=== PATIENT | female | born 1980 | race African-American/Black ===

== ENCOUNTER 2016-08-15 16:40 | Emergency (ER) | payer MEDICAID ==
[~2016-08-15 16:40] MED LIST: IBUP800T23 PO; LISI10TA3 PO
[2016-08-15 16:44] VITALS: BP 144/98; PULSE 105; RESP 20; TEMP 98.4; O2SAT 98
[2016-08-15] MEDS ORDERED: CYCL1TAB29 PO (16:57)
[2016-08-15] MEDS ORDERED: NAPR500T PO (16:57)
[2016-08-15] MEDS ORDERED: HYDR-3535 PO (16:57)
[2016-08-15] MEDS ORDERED: LIDO5DIS5 TOPICAL (17:13)
[2016-08-15] MEDS ORDERED: ORPHENADRINE INJ 60 MG/2 ML AMP IM ONE (17:15)
[2016-08-15] MEDS ORDERED: KETOROLAC TROMETHAMINE 60 MG/2 ML (IM) VIAL IM ONE (17:15)
--- NOTE | 2016-08-15 17:24 | PD ---
HPI Chief Complaint: Back/ Neck Pain or Injury Time Seen by Provider: 17:14 Travel History International Travel<30 days: No Contact w/Intl Traveler<30days: No Traveled to known affect area: No History of Present Illness HPI 36-year-old female presents to the emergency room for evaluation of chronic right-sided back pain. Patient states she has had chronic back pain for the past 2 years that flared 1-2 months ago. Denies any new trauma or injury. States she recently went to her pain management physician, Dr. Grover, who performed an MRI and gave her prescriptions for Lortab 10, Flexeril 10, and ibuprofen 800. Patient states she has been taking these medications several days without any relief in symptoms. Pain is so severe she had to be sent home early from work today. She cannot bend down without significant pain. States with every step she takes there is increasing pain in the right lower back. Pain is in the lumbar region and radiates to the right paraspinous musculature and down the right lower extremity. Patient has her MRI results with her: results dictated on July 30, 2016, state she has broad-based disc herniation incompletely effacing the ventral epidural fat of L5-S1. Patient states her pain management physician has not discussed surgery with her. She called an orthopedic surgeon and is waiting for him to call her back. Denies upper or lower extremity paresthesias, saddle anesthesia, or loss of bowel or bladder control. PFSH Past Medical History Blood Disorders: No Cancer: No Cardiovascular Problems: Yes Chemotherapy: No Diminished Hearing: No Endocrine: No Gastrointestinal Disorders: Yes GERD: Yes Genitourinary: No Headaches: Yes Hepatitis: Yes (HEP B) Hypertension: Yes Immune Disorder: No Musculoskeletal: No Neurologic: No Psychiatric: No Reproductive: Yes Respiratory: Yes (HX OF BRONCHITIS) Immunizations Current: Yes Radiation Therapy: No ?: Not LMP: 08/03/16 : 3 Para: 2 Miscarriage: 1 : 0 Ovarian Cysts: Yes Past Surgical History AICD: No Arteriovenous Shunt: No Insulin Pump: No Joint Replacement: No Pacemaker: No Social History Alcohol Use: Yes (OCC.) Tobacco Use: No (3-4 CIGS/DAY) Substance Use: No Allergies-Medications (Allergen,Severity, Reaction): Coded Allergies: No Known Allergies (Verified , 08/15/16) Reported Meds & Prescriptions Reported Meds & Active Scripts Active Lidoderm (Lidocaine) 5 % Adh..patch 1 Patch TOPICAL EVERY OTHER DAY PRN Lisinopril 10 Mg Tab 10 Mg PO DAILY Reported Naproxen 500 Mg Tab 500 Mg PO BID Flexeril (Cyclobenzaprine HCl) 10 Mg Tab 10 Mg PO TID Lortab (Hydrocodone-Acetaminophen) 10-325 Mg Tab 1 Tab PO Q4H PRN Review of Systems Except as stated in HPI: all other systems reviewed are Neg Physical Exam Narrative GENERAL: Well-nourished, well-developed female in no acute distress. Afebrile. Ambulatory. Moving on the bed with mild difficulty/pain. SKIN: Focused skin assessment warm/dry. HEAD: Normocephalic. EYES: No scleral icterus. No injection or drainage. NECK: Supple, trachea midline. No JVD or lymphadenopathy. CARDIOVASCULAR: Regular rate and rhythm without murmurs, gallops, or rubs. RESPIRATORY: Breath sounds equal bilaterally. No accessory muscle use. BACK: No CVA tenderness. No rash. No point tenderness on palpation of the spine. There is extreme tenderness to palpation of the right lumbar region. 2 + patellar and Achilles reflexes are equal bilaterally. Strength 5/5 and equal in lower extremities. Data Data Last Documented VS Vital Signs Date Time Temp Pulse Resp B/P Pulse Ox O2 Delivery O2 Flow Rate FiO2 08/15/16 16:44 98.4 105 20 144/98 98 Orders Ketorolac Inj (Toradol Inj) (08/15/16 17:15) Orphenadrine Inj (Norflex Inj) (08/15/16 17:15) MDM Medical Decision Making Medical Screen Exam Complete: Yes Emergency Medical Condition: Yes Medical Record Reviewed: Yes Differential Diagnosis Spasm, acute and chronic pain, fracture, contusion Narrative Course 1-year-old female presents to the emergency room for evaluation of acute on chronic low back pain. Patient has been having pain for 2 years but it exacerbated 2 months ago. She sees pain management but states the medications I prescribed are not helping. Physical exam is unremarkable. No focal neurological deficits. Ambulatory. No bony tenderness to palpation. She denies trauma or injury. Patient had an MRI last week that showed a bulging disc. She was informed that the emergency room cannot do nearly the extent of pain management as a management position and that she needs to follow up with her pain management doctor if her medications aren't working. She was given Toradol and Norflex in the emergency room and discharged with prescription for lidocaine patches. Told to return for neurological deficits. She understands and agrees to plan. Diagnosis Primary Impression: Chronic low back pain with right-sided sciatica Qualified Code: M54.41 - Chronic right-sided low back pain with right-sided sciatica Referrals: Pain Management Primary Care Physician Patient Instructions: Acute Low Back Pain (ED), General Instructions Additional Instructions: Apply patch as directed, as needed for pain. Apply ice to the affected area for 20 minutes at a time, as needed for pain and swelling. Follow-up with a primary care physician. Return to the emergency room for worsening symptoms. Med/Other Pt SpecificInfo: Prescription(s) given Scripts Lidocaine (Lidoderm)5 % Adh..patch1 Patch TOPICAL EVERY OTHER DAY PRN (PAIN SCALE 1 TO 10) #1 BOX Prov:Nohelia Martinez MD 08/15/16 Disposition: 01 DISCHARGE HOME Condition: Stable Marva Ortega Aug 15, 2016 17:24
== END 2016-08-15 17:33 | disposition home or self-care (01) ==
LOC: PHEFT 16:40
DX: M54.41 Lumbago with sciatica, right side (principal); G89.29 Other chronic pain; I10 Essential (primary) hypertension; Z72.0 Tobacco use; Z86.79 Personal history of other diseases of the circulatory system; Z87.19 Personal history of other diseases of the digestive system; Z87.42 Personal history of other diseases of the female genital tract; Z87.09 Personal history of other diseases of the respiratory system
CPT/HCPCS: 96372; 99284; J1885; J2360

== ENCOUNTER 2016-11-07 11:25 | Emergency (ER) | payer BC, MEDICAID ==
[~2016-11-07] VITALS: Ht 162.6 cm; Wt 75.9 kg
[~2016-11-07 11:25] MED LIST changes: +CYCL1TAB29 PO; +HYDR-3535 PO; -IBUP800T23 PO; +LIDO5DIS5 TOPICAL; +NAPR500T PO
[2016-11-07] MEDS ORDERED: SODIUM CHLOR 0.9% 1000 ML INJ 1,000 ML IV SCH (11:35)
--- NOTE | 2016-11-07 11:40 | PD ---
HPI Chief Complaint: ABD PAIN Time Seen by Provider: 11:35 Travel History International Travel<30 days: No Contact w/Intl Traveler<30days: No Traveled to known affect area: No History of Present Illness HPI OUT 1HR AGO, ACUTE ONSET OF RIGHT SIDED PAIN, SHARP, 9/10, NONRADIATING, DENIES N/V/D/FEVER/TOLLIVER/CP/....NO AGGRAVATING/ALLEVIATING FACTORS ALL: NKDA PMHX: HTN PSHX: DENIES PFSH Past Medical History Blood Disorders: No Cancer: No Cardiovascular Problems: Yes Chemotherapy: No Diminished Hearing: No Endocrine: No Gastrointestinal Disorders: Yes GERD: Yes Genitourinary: No Headaches: Yes Hepatitis: Yes (HEP B) Hypertension: Yes Immune Disorder: No Musculoskeletal: No Neurologic: No Psychiatric: No Reproductive: Yes Respiratory: Yes (HX OF BRONCHITIS) Immunizations Current: Yes Radiation Therapy: No : 3 Para: 2 Miscarriage: 1 : 0 Ovarian Cysts: Yes Past Surgical History AICD: No Arteriovenous Shunt: No Insulin Pump: No Joint Replacement: No Pacemaker: No Social History Alcohol Use: Yes (OCC.) Tobacco Use: No (3-4 CIGS/DAY) Substance Use: No Allergies-Medications (Allergen,Severity, Reaction): Coded Allergies: No Known Allergies (Verified , 08/19/16) Reported Meds & Prescriptions Reported Meds & Active Scripts Active Lidoderm (Lidocaine) 5 % Adh..patch 1 Patch TOPICAL EVERY OTHER DAY PRN Lisinopril 10 Mg Tab 10 Mg PO DAILY Reported Naproxen 500 Mg Tab 500 Mg PO BID Flexeril (Cyclobenzaprine HCl) 10 Mg Tab 10 Mg PO TID Lortab (Hydrocodone-Acetaminophen) 10-325 Mg Tab 1 Tab PO Q4H PRN Review of Systems Except as stated in HPI: all other systems reviewed are Neg Gastrointestinal: Positive: Abdominal Pain Physical Exam Narrative GENERAL: SKIN: Warm and dry. HEAD: Atraumatic. Normocephalic. EYES: Pupils equal and round. No scleral icterus. No injection or drainage. ENT: No nasal bleeding or discharge. Mucous membranes pink and moist. NECK: Trachea midline. No JVD. CARDIOVASCULAR: Regular rate and rhythm. RESPIRATORY: No accessory muscle use. Clear to auscultation. Breath sounds equal bilaterally. GASTROINTESTINAL: Abdomen soft, non-tender, nondistended. TT PERCUSSION OVER RUQ /RLQ REGIONS MUSCULOSKELETAL: Extremities without clubbing, cyanosis, or edema. No obvious deformities. NEUROLOGICAL: Awake and alert. No obvious cranial nerve deficits. Motor grossly within normal limits. Five out of 5 muscle strength in the arms and legs. Normal speech. PSYCHIATRIC: Appropriate mood and affect; insight and judgment normal. Data Data Last Documented VS Vital Signs Date Time Temp Pulse Resp B/P (MAP) Pulse Ox O2 Delivery O2 Flow Rate FiO2 11/07/16 11:57 97 Room Air 11/07/16 11:50 98.0 74 18 124/75 (91) Orders Orders Complete Blood Count With Diff (11/07/16 11:35) Comprehensive Metabolic Panel (11/07/16 11:35) Lipase (11/07/16 11:35) Prothrombin Time / Inr (Pt) (11/07/16 11:35) Act Partial Throm Time (Ptt) (11/07/16 11:35) Urinalysis - C+S If Indicated (11/07/16 11:35) Ct Abd/Pel W/O Iv Contrast (11/07/16 11:35) Iv Access Insert/Monitor (11/07/16 11:35) Ecg Monitoring (11/07/16 11:35) Oximetry (11/07/16 11:35) NPO (11/07/16 11:35) Hydromorphone Pf Inj (Dilaudid Pf Inj) (11/07/16 11:45) Ondansetron Inj (Zofran Inj) (11/07/16 11:45) Sodium Chlor 0.9% 1000 Ml Inj (Ns 1000 M (11/07/16 11:35) Ed Urine Pregnancytest Poc (11/07/16 11:35) Labs Laboratory Tests Test 11/07/16 11:50 11/07/16 12:20 White Blood Count 7.4 TH/MM3 Red Blood Count 5.28 MIL/MM3 Hemoglobin 14.9 GM/DL Hematocrit 45.2 % Mean Corpuscular Volume 85.7 FL Mean Corpuscular Hemoglobin 28.2 PG Mean Corpuscular Hemoglobin Concent 32.9 % Red Cell Distribution Width 13.4 % Platelet Count 179 TH/MM3 Mean Platelet Volume 9.7 FL Neutrophils (%) (Auto) 63.8 % Lymphocytes (%) (Auto) 29.4 % Monocytes (%) (Auto) 4.0 % Eosinophils (%) (Auto) 1.1 % Basophils (%) (Auto) 1.7 % Neutrophils # (Auto) 4.7 TH/MM3 Lymphocytes # (Auto) 2.2 TH/MM3 Monocytes # (Auto) 0.3 TH/MM3 Eosinophils # (Auto) 0.1 TH/MM3 Basophils # (Auto) 0.1 TH/MM3 CBC Comment DIFF FINAL Differential Comment Prothrombin Time 9.5 SEC Prothromb Time International Ratio 0.9 RATIO Activated Partial Thromboplast Time 27.3 SEC Blood Urea Nitrogen 16 MG/DL Creatinine 1.20 MG/DL Random Glucose 88 MG/DL Total Protein 7.2 GM/DL Albumin 3.6 GM/DL Calcium Level 9.1 MG/DL Alkaline Phosphatase 79 U/L Aspartate Amino Transf (AST/SGOT) 19 U/L Alanine Aminotransferase (ALT/SGPT) 29 U/L Total Bilirubin 0.5 MG/DL Sodium Level 139 MEQ/L Potassium Level 4.1 MEQ/L Chloride Level 106 MEQ/L Carbon Dioxide Level 25.9 MEQ/L Anion Gap 7 MEQ/L Estimat Glomerular Filtration Rate 61 ML/MIN Lipase 188 U/L Urine Collection Type VOIDED Urine Color STRAW Urine Turbidity CLEAR Urine pH 8.5 Urine Specific [place] 1.012 Urine Protein NEG mg/dL Urine Glucose (UA) NEG mg/dL Urine Ketones NEG mg/dL Urine Occult Blood MOD Urine Nitrite NEG Urine Bilirubin NEG Urine Leukocyte Esterase NEG Urine RBC 20-24 /hpf Urine WBC 0-2 /hpf Urine Squamous Epithelial Cells 0-5 /hpf Microscopic Urinalysis Comment CULT NOT INDICATED MDM Medical Decision Making Medical Screen Exam Complete: Yes Emergency Medical Condition: Yes Medical Record Reviewed: Yes Differential Diagnosis KIDNEY STONES V APPY V GB DZ V PANCREATITIS V COLITIS V DIVERTIC Narrative Course CBC, CMP AND UA WERE WNL, CT SHOWED OVARIAN CYSTS Diagnosis Primary Impression: OVARIAN CYST Patient Instructions: General Instructions, Ovarian Cyst (DC) Scripts Tramadol (Ultram) 50 Mg Tab 50 MG PO Q4H Y for PAIN, #20 TAB 0 Refills Prov: Jorge Durán MD 11/07/16 Ondansetron Odt (Zofran Odt) 4 Mg Tab 4 MG SL Q6HR Y for Nausea/Vomiting, #20 TAB 0 Refills Prov: Jorge Durán MD 11/07/16 Disposition: 01 DISCHARGE HOME Condition: Stable Jorge Durán MD Nov 07, 2016 11:40
[2016-11-07] MEDS ORDERED: HYDROmorphone HCL PF 2 MG/ML VIAL IVS ONE (11:45)
[2016-11-07] MEDS ORDERED: ONDANSETRON HCL 4 MG/2 ML VIAL IVP ONE (11:45)
[2016-11-07 11:50] VITALS: BP 124/75; PULSE 74; RESP 18; TEMP 98; O2SAT 98
[2016-11-07 11:57] VITALS: O2SAT 97
[2016-11-07 12:16] LABS: AUTOMATED NEUTROPHIL # 4.7 TH/MM3 (1.8-7.7); BASOPHIL # 0.1 TH/MM3 (0-0.2); BASOPHIL % 1.7 % (0.0-2.0); EOSINOPHIL # 0.1 TH/MM3 (0-0.4); EOSINOPHIL % 1.1 % (0.0-4.0); HEMATOCRIT 45.2 % (35.0-46.0); HEMO FLAGS DIFF FINAL; LYMPH % 29.4 % (9.0-44.0); LYMPHOCYTE # 2.2 TH/MM3 (1.0-4.8); MEAN CELL VOLUME 85.7 FL (80.0-100.0); MEAN CORPUSCULAR HEMOGLOBIN 28.2 PG (27.0-34.0); MEAN CORPUSCULAR HGB CONC 32.9 % (32.0-36.0); NEUT % 63.8 % (16.0-70.0); PLATELET COUNT 179 TH/MM3 (150-450); RED BLOOD COUNT 5.28 MIL/MM3 (4.00-5.30); RED CELL DISTRIBUTION WIDTH 13.4 % (11.6-17.2); WHITE BLOOD COUNT 7.4 TH/MM3 (4.0-11.0)
[2016-11-07 12:28] LABS: CHLORIDE 106 MEQ/L (98-107); POTASSIUM 4.1 MEQ/L (3.5-5.1); SODIUM (NA) 139 MEQ/L (136-145)
[2016-11-07 12:31] LABS: APTT (PATIENT) 27.3 SEC (24.3-30.1); INTERNATIONAL NORMALIZED RATIO 0.9 RATIO; PROTHROMBIN TIME - PATIENT 9.5 SEC (9.8-11.6)
[2016-11-07 12:33] LABS: ANION GAP 7 MEQ/L (5-15); BICARBONATE 25.9 MEQ/L (21.0-32.0); BLOOD UREA NITROGEN 16 MG/DL (7-18)
[2016-11-07 12:33] LABS: BLOOD, URINE MOD (NEG); GLUCOSE,URINE NEG (NEG); KETONE, URINE NEG (NEG); NITRITE,URINE NEG (NEG); PH, URINE 8.5 (5.0-8.5)
[2016-11-07 12:36] LABS: ALT (GPT) 29 U/L (10-53); AST (GOT) 19 U/L (15-37); GLOMERULAR FILTRATION RATE 61 ML/MIN (>89)
[2016-11-07 12:38] LABS: TOTAL BILIRUBIN ADULT 0.5 MG/DL (0.2-1.0)
[2016-11-07 12:39] LABS: ALKALINE PHOSPHATASE 79 U/L (45-117)
[2016-11-07 13:01] LABS: METHOD OF COLLECTION VOIDED; URINE COLOR STRAW (YELLW/STRAW)
[2016-11-07 13:02] LABS: COMMENT (UR) CULT NOT INDICATED; CULTURE IF INDICATED CULT NOT INDICATED; SQUAMOUS EPITHELIAL CELL URINE 0-5 /hpf (0-5); WBC, URINE 0-2 /hpf (0-5)
--- NOTE | 2016-11-07 13:06 | RADRPT ---
EXAM DATE/TIME: 11/07/2016 12:37 [facility] COMPARISON: No previous studies available for comparison. INDICATIONS : Right flank pain. Evaluate for renal stone. ORAL CONTRAST: No oral contrast ingested. RADIATION DOSE: 16.50 CTDIvol (mGy) MEDICAL HISTORY : Gastroesophageal reflux disease. Ovarian cyst. SURGICAL HISTORY : None. ENCOUNTER: Initial ACUITY: 1 day PAIN SCALE: 4/10 LOCATION: Right flank TECHNIQUE: Volumetric scanning of the abdomen and pelvis was performed. Using automated exposure control and ad justment of the mA and/or kV according to patient size, radiation dose was kept as low as reasonably achievable to obtain optimal diagnostic quality images. DICOM format image data is available electro nically for review and comparison. FINDINGS: LOWER LUNGS: Mild atelectatic changes in the right base. Otherwise clear. LIVER: Homogeneous density without lesion. There is no dilation of the biliary tree. No calcified gallston es. SPLEEN: Normal size without lesion. PANCREAS: Within normal limits. KIDNEYS: Normal in size and shape. There is no mass, stone, or hydronephrosis. The ureters are difficult to f ollow into the deep pelvis but I do not see stone disease. ADRENAL GLANDS: Within normal limits. VASCULAR: There is no aortic aneurysm. BOWEL/MESENTERY: The stomach, small bowel, and colon demonstrate no acute abnormality. There is no free intraperitone al air or fluid. The appendix is clearly identified, partially filled with residual contrast and radi ographically normal. ABDOMINAL WALL: Within normal limits. RETROPERITONEUM: There is no lymphadenopathy. BLADDER: No wall thickening or mass. REPRODUCTIVE: There appear to be follicular type cysts in both ovaries the largest on the right measuring 2 cm in d iameter. INGUINAL: There is no lymphadenopathy or hernia. MUSCULOSKELETAL: Within normal limits for patient age. CONCLUSION: 1. Mild atelectatic changes in the right base. 2. Bilateral ovarian cysts, largest on the right measuring 2 cm in diameter. 3. Otherwise, no acute intraperitoneal or pelvic process to explain current clinical symptoms. No obv ious right-sided stones or hydronephrosis. The appendix is normal. Cullen Rubi MD on November 07, 2016 at 12:54 Board Certified Radiologist. This report was verified electronically.
[2016-11-07 13:10] VITALS: BP 116/75; PULSE 68; RESP 16; O2SAT 97
[2016-11-07] MEDS ORDERED: ULTR50TA5 PO (13:43)
[2016-11-07] MEDS ORDERED: ZOFR4TAB3 SL (13:43)
[2016-11-07 13:58] VITALS: BP 116/63
== END 2016-11-07 14:09 | disposition home or self-care (01) ==
LOC: PHED 11:25
DX: N83.201 Unspecified ovarian cyst, right side (principal); N83.202 Unspecified ovarian cyst, left side; I10 Essential (primary) hypertension; K21.9 Gastro-esophageal reflux disease without esophagitis; F17.210 Nicotine dependence, cigarettes, uncomplicated
CPT/HCPCS: 74176; 80053; 81001; 83690; 84703; 85025; 85610; 85730; 96361; 96374; 96375; 99285; J1170; J2405; J7030

== ENCOUNTER 2017-03-31 23:57 | Emergency (ER) | payer BC ==
[~2017-03-31] VITALS: Ht 154.9 cm; Wt 73.0 kg
[~2017-03-31 23:57] MED LIST changes: -CYCL1TAB29 PO; -HYDR-3535 PO; -LIDO5DIS5 TOPICAL; -NAPR500T PO; +TRAM50 PO; +ZOFR4TAB3 SL
[2017-04-01 00:11] VITALS: BP 119/80; PULSE 75; RESP 20; TEMP 98.2; O2SAT 97
[2017-04-01] MEDS ORDERED: DOXY10TA PO (02:23)
--- NOTE | 2017-04-01 02:24 | PD ---
HPI Chief Complaint: GI Complaint Time Seen by Provider: 02:19 Travel History International Travel<30 days: No Contact w/Intl Traveler<30days: No Traveled to known affect area: No History of Present Illness HPI The patient is a 36-year-old female who is 5 weeks and started nausea with vomiting today. She states she cannot get anything down. This happened with her previous pregnancies and she tells me she "lived on Phenergan". She denies vomiting any blood, any fever or diarrhea. She does not have any significant abdominal pain. PFSH Past Medical History Blood Disorders: No Cancer: No Cardiovascular Problems: Yes Chemotherapy: No Diminished Hearing: No Endocrine: No Gastrointestinal Disorders: Yes GERD: Yes Genitourinary: No Headaches: Yes Hepatitis: Yes (HEP B) Hypertension: Yes Immune Disorder: No Implanted Vascular Access Dvce: No Musculoskeletal: No Neurologic: No Psychiatric: No Reproductive: Yes Respiratory: Yes (HX OF BRONCHITIS) Immunizations Current: Yes Radiation Therapy: No Influenza Vaccination: No ?: : 3 Para: 2 Miscarriage: 1 : 0 Ovarian Cysts: Yes Past Surgical History AICD: No Arteriovenous Shunt: No Insulin Pump: No Joint Replacement: No Pacemaker: No Social History Alcohol Use: Yes (OCC.) Tobacco Use: No (3-4 CIGS/DAY) Substance Use: Yes (Marijuana "on the weekends") Allergies-Medications (Allergen,Severity, Reaction): Coded Allergies: No Known Allergies (Verified , 08/19/16) Reported Meds & Prescriptions Reported Meds & Active Scripts Active Ultram (Tramadol HCl) 50 Mg Tab 50 Mg PO Q4H PRN Zofran Odt (Ondansetron Odt) 4 Mg Tab 4 Mg SL Q6HR PRN Lisinopril 10 Mg Tab 10 Mg PO DAILY Review of Systems Except as stated in HPI: all other systems reviewed are Neg Physical Exam Narrative GENERAL: Well-nourished, well-developed patient. There are no ketones on the breath. The patient appears mildly dehydrated. Her vital signs are normal. SKIN: Focused skin assessment warm/dry. HEAD: Normocephalic. EYES: No scleral icterus. No injection or drainage. NECK: Supple, trachea midline. No JVD or lymphadenopathy. CARDIOVASCULAR: Regular rate and rhythm without murmurs, gallops, or rubs. RESPIRATORY: Breath sounds equal bilaterally. No accessory muscle use. GASTROINTESTINAL: Abdomen soft, non-tender, nondistended. No guarding or rebound is present. MUSCULOSKELETAL: No cyanosis, or edema. BACK: Nontender without obvious deformity. No CVA tenderness. Data Data Last Documented VS Vital Signs Date Time Temp Pulse Resp B/P (MAP) Pulse Ox O2 Delivery O2 Flow Rate FiO2 04/01/17 00:43 16 04/01/17 00:11 98.2 75 119/80 (93) 97 MDM Medical Decision Making Medical Screen Exam Complete: Yes Emergency Medical Condition: Yes Medical Record Reviewed: Yes Differential Diagnosis Hyperemesis gravidarum, gastritis, gastroenteritis, small bowel obstruction- unlikely Narrative Course The patient has hyperemesis gravidarum. She will be given a prescription for Diclegis. Diagnosis Primary Impression: Hyperemesis gravidarum Med/Other Pt SpecificInfo: Prescription(s) given Scripts Doxylamine-Pyridoxine (Diclegis) 10-10 Mg Tab 2 TAB PO HS, #45 Prov: Jesus Chapman MD 04/01/17 Disposition: DISCHARGE HOME Condition: Stable Jesus Chapman MD Apr 01, 2017 02:24
[2017-04-01 02:30] VITALS: BP 138/62
[2017-04-01] MEDS ORDERED: PROMETHAZINE INJ 25 MG/ML VIAL IM ONE (02:30)
== END 2017-04-01 02:35 | disposition home or self-care (01) ==
LOC: PHED 23:57
DX: O21.0 Mild hyperemesis gravidarum (principal); O99.611 Diseases of the digestive system complicating pregnancy, first trimester; K21.9 Gastro-esophageal reflux disease without esophagitis; O16.1 Unspecified maternal hypertension, first trimester; O98.411 Viral hepatitis complicating pregnancy, first trimester; B19.10 Unspecified viral hepatitis B without hepatic coma; O99.331 Smoking (tobacco) complicating pregnancy, first trimester; F17.210 Nicotine dependence, cigarettes, uncomplicated; Z3A.01 Less than 8 weeks gestation of pregnancy
CPT/HCPCS: 96372; 99283; J2550

== ENCOUNTER 2017-04-03 23:06 | Emergency (ER) | payer BC ==
[~2017-04-03] VITALS: Ht 154.9 cm; Wt 72.0 kg
[~2017-04-03 23:06] MED LIST changes: +DOXY10TA PO
[2017-04-03 23:09] VITALS: BP 122/79; PULSE 85; RESP 20; TEMP 98.1; O2SAT 97
[2017-04-03] MEDS ORDERED: CYCL10TA PO (23:23)
[2017-04-03] MEDS ORDERED: HYDR-3583 PO (23:23)
[2017-04-03] MEDS ORDERED: PROM25TA10 PO (23:58)
--- NOTE | 2017-04-03 23:59 | PD ---
HPI Chief Complaint: GI Complaint Time Seen by Provider: 23:46 Travel History International Travel<30 days: No Contact w/Intl Traveler<30days: No Traveled to known affect area: No History of Present Illness HPI The patient is a 36-year-old female that complains of nausea. She was seen here for her hyperemesis gravidarum 3 days ago. She was prescribed Diclegis by myself but she could not afford the Diclegis. She states she has taken Phenergan in the past when she was . She states her insurance company wants $100 for the prescription of Diclegis. PFSH Past Medical History Blood Disorders: No Cancer: No Cardiovascular Problems: Yes Chemotherapy: No Diminished Hearing: No Endocrine: No Gastrointestinal Disorders: Yes GERD: Yes Genitourinary: No Headaches: Yes Hepatitis: Yes (HEP B) Hypertension: Yes Immune Disorder: No Implanted Vascular Access Dvce: No Musculoskeletal: No Neurologic: No Psychiatric: No Reproductive: Yes Respiratory: Yes (HX OF BRONCHITIS) Immunizations Current: Yes Radiation Therapy: No Influenza Vaccination: No ?: LMP: 02/20/17 : 4 Para: 2 Miscarriage: 1 : 0 Ovarian Cysts: Yes Past Surgical History AICD: No Arteriovenous Shunt: No Insulin Pump: No Joint Replacement: No Pacemaker: No Social History Alcohol Use: No (QUIT 03/30/17) Tobacco Use: Yes (QUIT 03/30/17) Substance Use: Yes (Marijuana "on the weekends") Allergies-Medications (Allergen,Severity, Reaction): Coded Allergies: No Known Allergies (Verified , 08/19/16) Reported Meds & Prescriptions Reported Meds & Active Scripts Active Phenergan (Promethazine HCl) 25 Mg Tablet 25 Mg PO Q6H PRN Diclegis (Doxylamine-Pyridoxine) 10-10 Mg Tab 2 Tab PO HS Lisinopril 10 Mg Tab 10 Mg PO DAILY Reported Flexeril (Cyclobenzaprine HCl) 10 Mg Tab 10 Mg PO TID PRN Hydrocodone-Acetaminophen 10-325 mg Tab 1 Tab PO Q4H PRN Review of Systems Except as stated in HPI: all other systems reviewed are Neg Physical Exam Narrative GENERAL: The patient is alert, oriented 3, slightly dehydrated-appearing and slight apparent distress with her nausea. Her vital signs are normal. SKIN: Focused skin assessment warm/dry. HEAD: Atraumatic. Normocephalic. EYES: Pupils equal and round. No scleral icterus. No injection or drainage. ENT: No nasal bleeding or discharge. Mucous membranes pink and moist. NECK: Trachea midline. No JVD. CARDIOVASCULAR: Regular rate and rhythm. No murmur appreciated. RESPIRATORY: No accessory muscle use. Clear to auscultation. Breath sounds equal bilaterally. GASTROINTESTINAL: Abdomen soft, non-tender, nondistended. Hepatic and splenic margins not palpable. No guarding or rebound is present. MUSCULOSKELETAL: No obvious deformities. No clubbing. No cyanosis. No edema. NEUROLOGICAL: Awake and alert. No obvious cranial nerve deficits. Motor grossly within normal limits. Normal speech. PSYCHIATRIC: Appropriate mood and affect; insight and judgment normal. Data Data Last Documented VS Vital Signs Date Time Temp Pulse Resp B/P (MAP) Pulse Ox O2 Delivery O2 Flow Rate FiO2 04/03/17 23:25 18 04/03/17 23:09 98.1 85 122/79 (93) 97 Orders Orders Sodium Chlor 0.9% 1000 Ml Inj (Ns 1000 M (04/04/17 00:00) Ondansetron Inj (Zofran Inj) (04/04/17 00:00) MDM Medical Decision Making Medical Screen Exam Complete: Yes Emergency Medical Condition: Yes Medical Record Reviewed: Yes Differential Diagnosis Hyperemesis gravidarum, dehydration, noncompliance to medications, Narrative Course The patient has hyperemesis gravidarum. She has noncompliance to medications because she cannot afford the Diclegis. She will be given a prescription for Phenergan. She is to follow-up with an air pollution engineer. She has been given 2 L of saline here as well as 4 mg of Zofran IV. It is now 011 2 in the morning and the patient has no nausea at this time. She wants to go home. She is given a prescription for Phenergan. She plans on buying the Diclegis but if it does not work, the Phenergan will be back up. She needs to get an air pollution engineer as soon as possible. Additional Instructions: As we discussed, get an air pollution engineer as soon as possible. The Phenergan is one tablet every 6 hours as needed for nausea. You may need to go to one tablet every 4 hours or 2 tablets every 6 hours if the nausea is severe. Med/Other Pt SpecificInfo: Prescription(s) given Scripts Promethazine (Phenergan) 25 Mg Tablet 25 MG PO Q6H Y for NAUSEA OR VOMITING, #30 TAB 0 Refills Prov: Jesus Chapman MD 04/03/17 Disposition: 01 DISCHARGE HOME Condition: Stable Jesus Chapman MD Apr 03, 2017 23:59
[2017-04-04] MEDS ORDERED: ONDANSETRON HCL 4 MG/2 ML VIAL IV ONE
[2017-04-04] MEDS: SODIUM CHLOR 0.9% 1000 ML INJ 1,000 ML IV SCH ×2 (00:16→00:52)
[2017-04-04 00:30] VITALS: BP 145/87; PULSE 83; RESP 16; O2SAT 99
[2017-04-04 01:35] VITALS: BP 108/67; PULSE 85; RESP 16; O2SAT 100
== END 2017-04-04 01:46 | disposition home or self-care (01) ==
LOC: PHED 23:06
DX: O21.0 Mild hyperemesis gravidarum (principal); O16.9 Unspecified maternal hypertension, unspecified trimester; Z3A.00 Weeks of gestation of pregnancy not specified; Z87.891 Personal history of nicotine dependence
CPT/HCPCS: 96361; 96374; 99284; J2405; J7030

== ENCOUNTER 2017-04-17 19:49 | Emergency (ER) | payer BC ==
[~2017-04-17] VITALS: Ht 154.9 cm; Wt 71.3 kg
[~2017-04-17 19:49] MED LIST changes: +CYCL10TA PO; +HYDR-3583 PO; +PROM25TA10 PO; -TRAM50 PO; -ZOFR4TAB3 SL
[2017-04-17 20:11] VITALS: BP 143/78; PULSE 76; RESP 16; TEMP 98.7; O2SAT 99
--- NOTE | 2017-04-17 20:53 | PD ---
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 Patient is 4 para 2. Patient states that she is about 8 week . Patient awaiting appointment with OB physician. Patient states that she is having intermittent right pelvic pain, sharp pain since this morning. Patient states that she noticed small amount of vaginal spotting today also. Patient states that she has small amount of vaginal discharge recently. Patient denies any fever chills. Patient denies any dysuria or frequency. Patient denies any back pain. Patient's blood type A+. PFSH Past Medical History Blood Disorders: No Cancer: No Cardiovascular Problems: Yes Chemotherapy: No Diminished Hearing: No Endocrine: No Gastrointestinal Disorders: Yes GERD: Yes Genitourinary: No Headaches: Yes Hepatitis: Yes (HEP B) Hypertension: Yes Immune Disorder: No Implanted Vascular Access Dvce: No Musculoskeletal: No Neurologic: No Psychiatric: No Reproductive: Yes Respiratory: Yes (HX OF BRONCHITIS) Immunizations Current: Yes Radiation Therapy: No ?: LMP: 02/20/17 : 4 Para: 2 Miscarriage: 1 : 0 Ovarian Cysts: Yes Past Surgical History AICD: No Arteriovenous Shunt: No Insulin Pump: No Joint Replacement: No Pacemaker: No Social History Alcohol Use: No (QUIT 03/30/17) Tobacco Use: Yes (QUIT 03/30/17) Substance Use: Yes (Marijuana "on the weekends") Allergies-Medications (Allergen,Severity, Reaction): Coded Allergies: No Known Allergies (Verified Adverse Reaction, Unknown, 04/17/17) Reported Meds & Prescriptions Reported Meds & Active Scripts Active Phenergan (Promethazine HCl) 25 Mg Tablet 25 Mg PO Q6H PRN Diclegis (Doxylamine-Pyridoxine) 10-10 Mg Tab 2 Tab PO HS Lisinopril 10 Mg Tab 10 Mg PO DAILY Reported Flexeril (Cyclobenzaprine HCl) 10 Mg Tab 10 Mg PO TID PRN Hydrocodone-Acetaminophen 10-325 mg Tab 1 Tab PO Q4H PRN Review of Systems General / Constitutional: No: Fever Eyes: No: Visual changes HENT: No: Headaches Cardiovascular: No: Chest Pain or Discomfort Respiratory: No: Shortness of Breath Gastrointestinal: No: Abdominal Pain Genitourinary: Positive: Pelvic Pain, Vaginal Bleeding, No: Dysuria Musculoskeletal: No: Pain Skin: No Rash Neurologic: No: Weakness Psychiatric: No: Depression Endocrine: No: Polydipsia Hematologic/Lymphatic: No: Easy Bruising Physical Exam Narrative GENERAL: Well-nourished, well-developed patient. SKIN: Focused skin assessment warm/dry. HEAD: Normocephalic. EYES: No scleral icterus. No injection or drainage. NECK: Supple, trachea midline. No JVD or lymphadenopathy. CARDIOVASCULAR: Regular rate and rhythm without murmurs, gallops, or rubs. RESPIRATORY: Breath sounds equal bilaterally. No accessory muscle use. GASTROINTESTINAL: Abdomen soft, non-tender, nondistended. MUSCULOSKELETAL: No cyanosis, or edema. BACK: Nontender without obvious deformity. No CVA tenderness. 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 No blood noticeable in the vaginal vault or cervical office. Uterus is enlarged with mild tenderness in palpation. No adnexal mass or tenderness. Data Data Last Documented VS Vital Signs Date Time Temp Pulse Resp B/P (MAP) Pulse Ox O2 Delivery O2 Flow Rate FiO2 04/17/17 20:11 98.7 76 16 143/78 (99) 99 Orders Orders Beta Hcg (Quant/Titer) (04/17/17 20:43) Gc And Chlamydia Pcr (04/17/17 20:43) Us Pelvis (Ques Pr/Ect)W Trans (04/17/17 ) Wet Prep Profile (04/17/17 20:43) Urinalysis - C+S If Indicated (04/17/17 20:43) Labs Laboratory Tests Test 04/17/17 20:55 04/17/17 21:00 Urine Color YELLOW Urine Turbidity CLEAR Urine pH 6.0 Urine Specific [place] 1.010 Urine Protein NEG mg/dL Urine Glucose (UA) NEG mg/dL Urine Ketones NEG mg/dL Urine Occult Blood NEG Urine Nitrite NEG Urine Bilirubin NEG Urine Urobilinogen 0.2 MG/DL Urine Leukocyte Esterase NEG Urine RBC 0-3 /hpf Urine WBC 0-2 /hpf Urine Squamous Epithelial Cells 6-8 /hpf Microscopic Urinalysis Comment CULT NOT INDICATED Human Chorionic Gonadotropin, Quant [id number] MIU/ML Clue Cells (Wet Prep) NONE SEEN Vaginal Trichomonas (Wet Prep) NONE SEEN Vaginal Yeast (Wet Prep) NONE SEEN MDM Medical Decision Making Medical Screen Exam Complete: Yes Emergency Medical Condition: Yes Interpretation(s) 22:15 PM. UA is negative. Beta-hCG [id number]. Wet prep negative. GC chlamydia PCR pending. Pelvic ultrasound shows IUP with heart tone present. Differential Diagnosis Differential diagnosis including pelvic pain during , cervicitis, threatened AB, completed AB, completed AB, ectopic . Narrative Course 36-year-old female, 8 weeks , with right-sided pelvic pain and vaginal spotting. Diagnosis Primary Impression: Pelvic pain during Patient Instructions: General Instructions Additional Instructions: vitamins as directed. Follow-up with personal physician and OB physician. Return increasing pain, vaginal bleeding. Med/Other Pt SpecificInfo: No Meds Exist/No RX given Disposition: 01 DISCHARGE HOME Condition: Stable Antony Renee MD Apr 17, 2017 20:53
[2017-04-17 21:05] LABS: BILIRUBIN, URINE NEG (NEG); BLOOD, URINE NEG (NEG); GLUCOSE,URINE NEG (NEG); KETONE, URINE NEG (NEG); NITRITE,URINE NEG (NEG); URINE COLOR YELLOW (YELLW/STRAW); URINE LEUKOCYTE ESTERASE NEG (NEG)
[2017-04-17 21:12] LABS: RBC, URINE 0-3 /hpf (0-3); WBC, URINE 0-2 /hpf (0-5)
[2017-04-17 22:26] VITALS: BP 138/71; TEMP 98.5
--- NOTE | 2017-04-17 22:48 | RADRPT ---
EXAM DATE/TIME: 04/17/2017 21:58 [facility] COMPARISON: No previous studies available for comparison. INDICATIONS : Vaginal spotting. LAB(S): Beta-hC,940 MEDICAL HISTORY : . Hypertension. Gastroesophageal reflux disease. Ovarian cysts. SURGICAL HISTORY : None. ENCOUNTER: Initial ACUITY: 1 day PAIN SCORE: 2/10 LOCATION: Bilateral pelvis MEASUREMENTS: UTERUS: 9.9 x 6.4 x 6.2 cm ENDOMETRIAL STRIPE: >20 mm RIGHT OVARY: 2.9 x 1.5 x 4.1 cm LEFT OVARY: 4.2 x 1.9 x 3.0 cm FREE FLUID: Yes bilateral adnexas. CROWN RUMP LENGTH: 1.7 cm = 8 WKS 1 DAYS FHR: 167 BPM FINDINGS: UTERUS: There is a gestational sac, yield sac and pole within the uterine cavity. Gestational sac is ap proximately 17.1 mm which corresponds to a gestational age of 8 weeks one day. No subchorionic hemorr blanca or other acute complication seen. heart tones are demonstrated. RIGHT OVARY: Ovary contains no mass or significant cystic lesion. LEFT OVARY: There is an approximately 2.3 x 1.7 x 2.1 cm left ovarian cyst. No associated significant hyperemia i s seen. MISCELLANEOUS: Trace free fluid in both adnexa. CONCLUSION: 1. Single, viable intrauterine as above. 2. Cyst of the left ovary, probably a corpus luteal cyst. No features typical of ectopic. Cecilio Obrien MD on April 17, 2017 at 22:43 Board Certified Radiologist. This report was verified electronically.
== END 2017-04-17 22:33 | disposition home or self-care (01) ==
LOC: PHED 19:49
DX: O26.891 Other specified pregnancy related conditions, first trimester (principal); R10.2 Pelvic and perineal pain; B19.10 Unspecified viral hepatitis B without hepatic coma; I10 Essential (primary) hypertension; Z3A.08 8 weeks gestation of pregnancy
CPT/HCPCS: 76700; 76817; 81001; 84702; 87210; 87491; 87591; 99285

== ENCOUNTER → 2017-06-21 | Outpatient (CLI) | DX: O28.0 Abnormal hematological finding on antenatal screening of mother (principal); O35.1XX0 Maternal care for (suspected) chromosomal abnormality in fetus, not applicable or unspecified; B19.10 Unspecified viral hepatitis B without hepatic coma; D57.3 Sickle-cell trait; O09.522 Supervision of elderly multigravida, second trimester; O98.419 Viral hepatitis complicating pregnancy, unspecified trimester ==

== ENCOUNTER → 2017-07-05 | Outpatient (CLI) | payer BC | LOC: HPND 12:21 | PROVIDERS: ATTEND Obstetrics & Gynecology | DX: O09.522 Supervision of elderly multigravida, second trimester (principal); O28.0 Abnormal hematological finding on antenatal screening of mother; O09.212 Supervision of pregnancy with history of pre-term labor, second trimester; O99.012 Anemia complicating pregnancy, second trimester | CPT/HCPCS: 76815; 76817 ==

== ENCOUNTER → 2017-07-19 | Outpatient (CLI) | payer BC | LOC: HPND 08:47 | PROVIDERS: ATTEND Obstetrics & Gynecology | DX: O09.522 Supervision of elderly multigravida, second trimester (principal); O28.0 Abnormal hematological finding on antenatal screening of mother; O99.012 Anemia complicating pregnancy, second trimester; O09.212 Supervision of pregnancy with history of pre-term labor, second trimester; O09.292 Supervision of pregnancy with other poor reproductive or obstetric history, second trimester | CPT/HCPCS: 76816; 76817 ==

== ENCOUNTER 2017-08-01 00:40 | Emergency (ER) | payer BC ==
[~2017-08-01] VITALS: Ht 154.9 cm; Wt 80.4 kg
[2017-08-01 00:49] VITALS: BP 128/74; PULSE 92; RESP 16; TEMP 99.1; O2SAT 99
--- NOTE | 2017-08-01 01:23 | PD ---
HPI Chief Complaint: Pelvic discomfort Time Seen by Provider: 00:53 Travel History International Travel<30 days: No Contact w/Intl Traveler<30days: No Traveled to known affect area: No History of Present Illness HPI The patient is a 37-year-old female, G4, P2, A1 who gets the Liz shots to prevent early labor. She complains of cramping every 15 minutes. She denies any vaginal bleeding. She states she has a short cervix and she has a tear in the cervix. She is followed by Dr. Paz. [facility] Past Medical History Blood Disorders: No Cancer: No Cardiovascular Problems: Yes Chemotherapy: No Diminished Hearing: No Endocrine: No Gastrointestinal Disorders: Yes GERD: Yes Genitourinary: No Headaches: Yes Hepatitis: Yes (HEP B) Hypertension: Yes Immune Disorder: No Implanted Vascular Access Dvce: No Musculoskeletal: No Neurologic: No Psychiatric: No Reproductive: Yes Respiratory: Yes (HX OF BRONCHITIS) Immunizations Current: Yes Radiation Therapy: No : 4 Para: 2 Miscarriage: 1 : 0 Ovarian Cysts: Yes Past Surgical History AICD: No Arteriovenous Shunt: No Insulin Pump: No Joint Replacement: No Pacemaker: No Social History Alcohol Use: No (QUIT 03/30/17) Tobacco Use: No (QUIT 03/30/17) Substance Use: No Allergies-Medications (Allergen,Severity, Reaction): Coded Allergies: No Known Allergies (Verified Adverse Reaction, Unknown, 04/17/17) Reported Meds & Prescriptions Reported Meds & Active Scripts Active Reported Phenergan (Promethazine HCl) 25 Mg Tablet 25 Mg PO Q6H PRN Flintstones Complete (Iron/Minerals/Multivitamins) 60 Mg Tab 1 Tab CHEW DAILY Liz 250 mg/ml Vial (Hydroxyprogesterone Caproat/Pf) 250 Mg/Ml (1 Ml) Vial IM WEEKLY Review of Systems Except as stated in HPI: all other systems reviewed are Neg Physical Exam Narrative GENERAL: The patient is obese, alert, oriented 3 in slight apparent distress with her pelvic discomfort. The vital signs are normal except for a heart rate of 92. SKIN: Focused skin assessment warm/dry. HEAD: Atraumatic. Normocephalic. EYES: Pupils equal and round. No scleral icterus. No injection or drainage. ENT: No nasal bleeding or discharge. Mucous membranes pink and moist. NECK: Trachea midline. No JVD. CARDIOVASCULAR: Regular rate and rhythm. No murmur appreciated. RESPIRATORY: No accessory muscle use. Clear to auscultation. Breath sounds equal bilaterally. GASTROINTESTINAL: Abdomen soft, non-tender, nondistended. Hepatic and splenic margins not palpable. MUSCULOSKELETAL: No obvious deformities. No clubbing. No cyanosis. No edema. NEUROLOGICAL: Awake and alert. No obvious cranial nerve deficits. Motor grossly within normal limits. Normal speech. PSYCHIATRIC: Appropriate mood and affect; insight and judgment normal. GENITOURINARY: Normal external genitalia without lesions or erythema. Vaginal vault with white, [id number] drainage. Cervical os was closed without drainage. Slight cervical motion tenderness. Uterus nontender and 23 weeks enlarged. Bilateral adnexa Slightly tender without masses. Data Data Last Documented VS Vital Signs Date Time Temp Pulse Resp B/P (MAP) Pulse Ox O2 Delivery O2 Flow Rate FiO2 08/01/17 01:18 20 08/01/17 00:49 99.1 92 128/74 (92) 99 Orders Orders Electrocardiogram (08/01/17 00:54) Basic Metabolic Panel (Bmp) (08/01/17 01:50) Urinalysis - C+S If Indicated (08/01/17 01:50) Complete Blood Count With Diff (08/01/17 01:50) Labs Laboratory Tests Test 08/01/17 01:55 White Blood Count 13.8 TH/MM3 Red Blood Count 3.84 MIL/MM3 Hemoglobin 11.5 GM/DL Hematocrit 34.7 % Mean Corpuscular Volume 90.4 FL Mean Corpuscular Hemoglobin 30.0 PG Mean Corpuscular Hemoglobin Concent 33.2 % Red Cell Distribution Width 13.1 % Platelet Count 180 TH/MM3 Mean Platelet Volume 9.0 FL Neutrophils (%) (Auto) 71.8 % Lymphocytes (%) (Auto) 16.5 % Monocytes (%) (Auto) 6.4 % Eosinophils (%) (Auto) 0.7 % Basophils (%) (Auto) 4.6 % Neutrophils # (Auto) 9.9 TH/MM3 Lymphocytes # (Auto) 2.3 TH/MM3 Monocytes # (Auto) 0.9 TH/MM3 Eosinophils # (Auto) 0.1 TH/MM3 Basophils # (Auto) 0.6 TH/MM3 CBC Comment DIFF FINAL Differential Comment Urine Color YELLOW Urine Turbidity CLEAR Urine pH 6.5 Urine Specific [place] LESS/EQUAL 1.005 Urine Protein NEG mg/dL Urine Glucose (UA) NEG mg/dL Urine Ketones NEG mg/dL Urine Occult Blood NEG Urine Nitrite NEG Urine Bilirubin NEG Urine Urobilinogen 1.0 MG/DL Urine Leukocyte Esterase NEG Urine RBC 0-3 /hpf Urine WBC 3-5 /hpf Urine Squamous Epithelial Cells 6-8 /hpf Urine Bacteria OCC /hpf Microscopic Urinalysis Comment CULT NOT INDICATED Blood Urea Nitrogen 9 MG/DL Creatinine 0.85 MG/DL Random Glucose 97 MG/DL Calcium Level 8.8 MG/DL Sodium Level 136 MEQ/L Potassium Level 4.3 MEQ/L Chloride Level 105 MEQ/L Carbon Dioxide Level 21.0 MEQ/L Anion Gap 10 MEQ/L Estimat Glomerular Filtration Rate 90 ML/MIN [facility] Medical Decision Making Medical Screen Exam Complete: Yes Emergency Medical Condition: Yes Medical Record Reviewed: Yes Interpretation(s) EKG shows sinus rhythm with a rate of [address] elevation or depression. The CBC shows a white count of 13,800 with a hemoglobin 11.5 and hematocrit of 34.7 and 72% neutrophils but is otherwise unremarkable. The basic metabolic profile is normal. The urine is normal and cultures not indicated. The specific gravity is low at 1.005. Differential Diagnosis , Urinary tract infection active labor, false labor, John Velasco contractions Narrative Course It is now 0226 and the patient's contractions have completely resolved. She is told to call Dr. aPz in the morning about what happened tonight. The patient wants to go home, she states she feels fine now. Diagnosis Primary Impression: Pelvic pain/contractions resolved Additional Instructions: As we discussed, follow-up with Dr. Paz as soon as possible. Tell him that she had some pelvic discomfort that resolved tonight. Med/Other Pt SpecificInfo: No Change to Meds Disposition: 01 DISCHARGE HOME Condition: Stable Jesus Chapman MD Aug 01, 2017 01:23
[2017-08-01] MEDS ORDERED: FLINT2 CHEW (01:28)
[2017-08-01] MEDS ORDERED: HYDR2INJ IM (01:28)
[2017-08-01] MEDS ORDERED: PROM25TA10 PO (01:32)
[2017-08-01 02:01] LABS: AUTOMATED NEUTROPHIL # 9.9 TH/MM3 (1.8-7.7); BASOPHIL # 0.6 TH/MM3 (0-0.2); BASOPHIL % 4.6 % (0.0-2.0); BILIRUBIN, URINE NEG (NEG); BLOOD, URINE NEG (NEG); EOSINOPHIL # 0.1 TH/MM3 (0-0.4); EOSINOPHIL % 0.7 % (0.0-4.0); GLUCOSE,URINE NEG (NEG); HEMATOCRIT 34.7 % (35.0-46.0); HEMOGLOBIN 11.5 GM/DL (11.6-15.3); KETONE, URINE NEG (NEG); LYMPH % 16.5 % (9.0-44.0); LYMPHOCYTE # 2.3 TH/MM3 (1.0-4.8); MEAN CELL VOLUME 90.4 FL (80.0-100.0); MEAN CORPUSCULAR HGB CONC 33.2 % (32.0-36.0); MONO % 6.4 % (0.0-8.0); MONOCYTE # 0.9 TH/MM3 (0-0.9); NEUT % 71.8 % (16.0-70.0); NITRITE,URINE NEG (NEG); PH, URINE 6.5 (5.0-8.5); PLATELET COUNT 180 TH/MM3 (150-450); RED BLOOD COUNT 3.84 MIL/MM3 (4.00-5.30); RED CELL DISTRIBUTION WIDTH 13.1 % (11.6-17.2); URINE COLOR YELLOW (YELLW/STRAW); URINE LEUKOCYTE ESTERASE NEG (NEG); WHITE BLOOD COUNT 13.8 TH/MM3 (4.0-11.0)
[2017-08-01 02:06] LABS: BACTERIA, URINE OCC /hpf; RBC, URINE 0-3 /hpf (0-3)
[2017-08-01 02:11] LABS: CALCIUM 8.8 MG/DL (8.5-10.1)
[2017-08-01 02:15] LABS: CREATININE 0.85 MG/DL (0.50-1.00)
[2017-08-01 02:30] VITALS: BP 118/69
--- NOTE | 2017-08-01 07:39 | EKG ---
Date Performed: 08/01/2017 Time Performed: 01:23:14 PTAGE: 37 years EKG: Baseline artifact present Sinus rhythm NONSPECIFIC T-WAVE ABNORMALITY BORDERLINE ECG NO PREVIOUS TRACING DOCTOR: Maxi Tena Interpretating Date/Time 08/01/2017 07:38:54
== END 2017-08-01 02:43 | disposition home or self-care (01) ==
LOC: PHED 00:40
DX: O26.899 Other specified pregnancy related conditions, unspecified trimester (principal); R10.2 Pelvic and perineal pain; R94.31 Abnormal electrocardiogram [ECG] [EKG]; Z3A.00 Weeks of gestation of pregnancy not specified
CPT/HCPCS: 80048; 81001; 85025; 93005

== ENCOUNTER → 2017-08-03 | Outpatient (CLI) | payer BC ==
[~2017-08-03] MED LIST changes: +FLINT2 CHEW; +HYDR2INJ IM
== END ==
LOC: HPND 09:00
PROVIDERS: ATTEND Obstetrics & Gynecology
DX: O09.522 Supervision of elderly multigravida, second trimester (principal); O09.292 Supervision of pregnancy with other poor reproductive or obstetric history, second trimester; O28.0 Abnormal hematological finding on antenatal screening of mother
CPT/HCPCS: 76815; 76817

== ENCOUNTER 2017-09-03 16:16 | Inpatient (IN) ==
[2017-09-03] MEDS ORDERED: Docusate Sodium 100 MG Capsule PO PRN (16:55)
[2017-09-03] MEDS ORDERED: Mag Sulf/Water 4 gm/100 ml 100 ML IV.SIG ONE (16:55)
[2017-09-03] MEDS: Mag Sulf/Water 40 gm/1000 ml 40 GM/1,000 ML BAG IV.CONT SCH (17:30)
[2017-09-03] MEDS: Betamethasone Sod Phos/Acetate Inj 30 MG/5 ML Vial IM SCH (17:32)
[2017-09-03 17:33] LABS: Baso % (Auto) 0.3 % (0.0-2.0); Eos # (Auto) 0.1 th/mm3 (0.0-0.4); Eos % (Auto) 0.6 % (0.0-4.0); Hematocrit 35.3 % (35.0-46.0); Hemoglobin 12.1 gm/dL (11.6-15.3); Lymph # (Auto) 2.2 th/mm3 (1.0-4.8); Lymph % (Auto) 16.7 % (9.0-44.0); Mean Corpuscular HGB Conc 34.4 % (32.0-36.0); Mean Corpuscular Hemoglobin 30.1 pg (27.0-34.0); Mean Corpuscular Volume 87.6 fL (80.0-100.0); Mean Platelet Volume 8.6 fL (7.0-11.0); Neut # (Auto) 9.6 th/mm3 (1.8-7.7); Neut % (Auto) 74.4 % (16.0-70.0); Platelet Count 178 th/mm3 (150-450); Red Blood Count 4.03 mil/mm3 (4.00-5.30); Red Cell Distribution Width 13.7 % (11.6-17.2)
--- NOTE | 2017-09-03 17:40 | ED ---
History of Present Illness Primary Care Physician: NOT REQUIRED History of Present Illness: 37-year-old 3 para 2 with a history of 2 prior deliveries who is now 28 weeks 6 days gestation and complaining of contractions starting at 330 this afternoon. The patient denies leakage of fluid or bleeding. She reports normal movement. She has been under the care of Dr. Paz for this and has been on progesterone injections for history of delivery. Her current has been complicated by history of , #2 advanced maternal age with abnormal quad screen suggesting increased risk of Down syndrome with no diagnostic confirmatory test performed. #3 positive hepatitis B surface antigen, #4 chronic hypertension which has been well controlled off of medication during this . - Inpatient Certification I certify that the inpatient services were ordered in accordance with Medicare regulations governing the order. This includes certification that hospital inpatient services are reasonable and necessary and in the case of services not specified as inpatient-only under 42 CFR 419.22(n), that they are appropriately provided as inpatient services in accordance to with the 2-midnight benchmark under 43 CFR 412.3(e) Estimated Total Length of Stay (Days): 5 Plans for Post Hospital Care: Home Review of Systems All other systems reviewed negative except as stated in HPI PMFSH - Medical History Medical History: Medical History (Last Updated 09/03/17 @ 17:36 by Osiel Hayes MD) Chronic hypertension affecting Hepatitis B affecting Medications and Allergies Active Medications: Active Medications Betamethasone Acet/Betameth SodPhos (Celestone Soluspan Inj) 12 mg IM Q24H ROLAND Stop: 09/04/17 17:01 Calcium Gluconate (Calcium Gluconate Inj) 1 gm IV.PUSH ONCE PRN PRN Reason: Magnesium Toxicity Docusate Sodium (Colace) 100 mg PO BID PRN PRN Reason: CONSTIPATION Lactated Ringer's (Lr 1000 Ml Inj) 1,000 mls @ 75 mls/hr IV.CONT .[id number] ROLAND Last Admin: 09/03/17 17:05 Dose: 125 mls/hr Lactated Ringer's (Lr 1000 Ml Inj) 500 mls @ 0 mls/hr IV.SIG .Q0M ROLAND Magnesium Sulfate (Magnesium Sulfate/Water 40 Gm/1000 Ml Premix) 40 gm in 1, 000 mls @ 50 mls/hr IV.CONT Q24H ROLAND Ondansetron HCl (Zofran Odt) 4 mg PO Q6H PRN PRN Reason: NAUSEA OR VOMITING Vit/Calcium/Iron/Folic Ac (Stuartnatal Plus 3) 1 tab PO DAILY ROLAND Sodium Chloride (Ns Flush) 2 ml IV.FLUSH BID ROLAND Sodium Chloride (Ns Flush) 2 ml IV.FLUSH PRN PRN PRN Reason: FLUSH AFTER USING IV ACCESS Sodium Chloride (Ns Flush) 2 ml IV.FLUSH BID ROLAND Sodium Chloride (Ns Flush) 2 ml IV.FLUSH PRN PRN PRN Reason: FLUSH AFTER USING IV ACCESS Allergies Allergy/AdvReac Type Severity Reaction Status Date / Time Penicillins Allergy Severe Rash Verified 09/03/17 17:29 No Known Drug Allergies Allergy Unknown none Verified 09/03/17 16:24 No Known Allergies Allergy Unknown none Uncoded 09/03/17 16:24 Exam Vital signs: Intake & Output 09/02/17 09/03/17 09/03/17 18:59 06:59 18:59 Weight 82.554 kg Narrative: GENERAL: Well-nourished, well-developed patient. SKIN: Warm and dry. HEAD: Normocephalic and atraumatic. EYES: No scleral icterus. No injection or drainage. ENT: No nasal drainage noted. Mucous membranes pink. Airway patent. NECK: Supple, trachea midline. No JVD. CARDIOVASCULAR: Regular rate and rhythm without murmurs, gallops, or rubs. RESPIRATORY: Breath sounds equal bilaterally. No accessory muscle use. BREASTS: Bilateral exam showed no masses , no retractions, no nipple discharge. ABDOMEN/GI: Abdomen soft, non-tender, bowel sounds present, no rebound, no guarding Gravid to [-] weeks size Fundal Height: [28-] GENITOURINARY: External Genitalia: intact and normal in appearance BUS glands: [-Condyloma] Cervix: [-] Dilatation: [-2] Effacement: [-80] Station: [--3] Presentation: [-vtx] Membranes: [intact] Uterine Contractions: [irreg, mod-] FHT's: Category: [-1] Baseline: [-] Reactive: [-] Variability: [-] Decels: [-] EXTREMITIES: No cyanosis or edema. BACK: Nontender without obvious deformity. No CVA tenderness. NEUROLOGICAL: Awake and alert. Motor and sensory grossly within normal limits. Five out of 5 muscle strength in all muscle groups. Normal speech. Results - Labs CBC & Chem 7: 09/03/17 17:05 09/03/17 17:05 Assessment and Plan - Plan Assessment: 28+ week intrauterine with labor and a history of 2, #2 hepatitis B surface antigen positive, #3 chronic hypertension Plan: Admit for labor management. Initiate magnesium sulfate for neuro protection. Initiate betamethasone. Initiate nifedipine 30 mg p.o. Discharge Plan - Discharge Disposition Patient Disposition: 30 Still Patient - Physicians Team ED Provider: Osiel Hayes Primary Care Provider: NOT REQUIRED,
[2017-09-03 17:49] LABS: Albumin 2.9 g/dL (3.4-5.0); Anion Gap 8 meq/L (5-15); Aspartate Aminotransferase 19 U/L (15-37); Blood Urea Nitrogen 6 mg/dL (7-18); Carbon Dioxide 23.4 meq/L (21.0-32.0); Chloride 107 meq/L (98-107); Glomerular Filtration Rate 75 mL/min (>89); Glucose,Random 78 mg/dL (74-106); Potassium 3.8 meq/L (3.5-5.1); Sodium 138 meq/L (136-145)
[2017-09-03 17:50] LABS: Alanine Aminotransferase 22 U/L (10-53)
[2017-09-03 17:53] LABS: Alkaline Phosphatase 85 U/L (45-117)
[2017-09-03] MEDS ORDERED: Sodium Chlor 0.9% Inj 100 ML ONE (21:09)
[2017-09-03] MEDS ORDERED: Indomethacin 25 MG Capsule PO SCH (21:30)
[2017-09-04 07:46] LABS: Bilirubin,Urine Negative (Negative); Clarity,Urine Clear (Clear); Color,Urine Yellow (Yellw/Straw); Glucose,Urine (UA) Negative (Negative); Leukocyte Esterase,Urine Negative (Negative); Nitrite,Urine Negative (Negative); Specific Gravity,Urine 1.011 (1.002-1.035); Squamous Epithelial Cell,Urine 3 /hpf (0-5)
[2017-09-04 07:50] LABS: Amphetamine Screen,Urine Neg (Neg); Barbiturate Screen,Urine Neg (Neg); Cannabinoid Screen,Urine Pos (Neg); Cocaine Screen,Urine Neg (Neg)
[2017-09-04 08:01] LABS: Opiate Screen,Urine Neg (Neg)
--- NOTE | 2017-09-04 08:23 | P.HPOB ---
History of Present Illness Service: obstetrics Primary Care Physician: NOT REQUIRED History of Present Illness: 37 yo at 29 weeks who came in with contractions every 3-5 min. History of labor and deilvery at 30 and 32 weeks. Had been receiving robe and was working and having intercourse before contractions started Weeks Gestation:: 29 Para: 4 : 2 Total # of Miscarriage(s): 1 - Inpatient Certification I certify that the inpatient services were ordered in accordance with Medicare regulations governing the order. This includes certification that hospital inpatient services are reasonable and necessary and in the case of services not specified as inpatient-only under 42 CFR 419.22(n), that they are appropriately provided as inpatient services in accordance to with the 2-midnight benchmark under 43 CFR 412.3(e) Estimated Total Length of Stay (Days): 5 Plans for Post Hospital Care: Home Review of Systems All other systems reviewed negative except as stated in HPI [facility] - Medical History Medical History: Medical History (Last Updated 09/03/17 @ 17:36 by Osiel Hayes MD) Chronic hypertension affecting Hepatitis B affecting - Tobacco History Second Hand Smoke Exposure: No Tobacco Use In Past 30 Days: No Smoking Status: Never smoker - Travel History Recent Travel in the [place] Within the Last 8 Weeks: No Recent Travel Out of the Country Within the Last 8 Weeks: No Medications and Allergies Active Medications: Active Medications Betamethasone Acet/Betameth SodPhos (Celestone Soluspan Inj) 12 mg IM Q24H [facility] Stop: 09/04/17 17:01 Last Admin: 09/03/17 17:32 Dose: 12 mg Calcium Gluconate (Calcium Gluconate Inj) 1 gm IV.PUSH ONCE PRN PRN Reason: Magnesium Toxicity Docusate Sodium (Colace) 100 mg PO BID PRN PRN Reason: CONSTIPATION Lactated Ringer's (Lr 1000 Ml Inj) 1,000 mls @ 75 mls/hr IV.CONT .[id number] [facility] Last Admin: 09/03/17 17:05 Dose: 125 mls/hr Lactated Ringer's (Lr 1000 Ml Inj) 500 mls @ 0 mls/hr IV.SIG .Q0M [facility] Magnesium Sulfate (Magnesium Sulfate/Water 40 Gm/1000 Ml Premix) 40 gm in 1, 000 mls @ 50 mls/hr IV.CONT Q24H [facility] Last Admin: 09/03/17 17:30 Dose: 2 gm/hr, 50 mls/hr Ondansetron HCl (Zofran Odt) 4 mg PO Q6H PRN PRN Reason: NAUSEA OR VOMITING Vit/Calcium/Iron/Folic Ac (Stuartnatal Plus 3) 1 tab PO DAILY [facility] Sodium Chloride (Ns Flush) 2 ml IV.FLUSH BID [facility] Last Admin: 09/03/17 23:50 Dose: Not Given Sodium Chloride (Ns Flush) 2 ml IV.FLUSH PRN PRN PRN Reason: FLUSH AFTER USING IV ACCESS Sodium Chloride (Ns Flush) 2 ml IV.FLUSH BID [facility] Last Admin: 09/03/17 23:50 Dose: Not Given Sodium Chloride (Ns Flush) 2 ml IV.FLUSH PRN PRN PRN Reason: FLUSH AFTER USING IV ACCESS Allergies Allergy/AdvReac Type Severity Reaction Status Date / Time Penicillins Allergy Severe Rash Verified 09/03/17 17:29 No Known Drug Allergies Allergy Unknown none Verified 09/03/17 16:24 No Known Allergies Allergy Unknown none Uncoded 09/03/17 16:24 Exam Vital signs: Vital Signs 09/03/17 17:45 09/03/17 18:10 09/03/17 18:15 Temperature Pulse Rate 99 H 96 H Respiratory Rate 16 Blood Pressure 140/80 114/66 09/03/17 18:41 09/03/17 18:45 09/03/17 19:00 Temperature Pulse Rate 93 H 95 H Respiratory Rate Blood Pressure 117/69 122/66 114/71 09/03/17 19:10 09/03/17 19:16 09/03/17 19:55 Temperature 98.3 F Pulse Rate 99 H 96 H Respiratory Rate Blood Pressure 112/62 09/03/17 20:15 09/03/17 21:00 09/03/17 21:16 Temperature 98.4 F Pulse Rate 97 H 96 H Respiratory Rate 18 18 Blood Pressure 115/71 09/03/17 22:01 09/03/17 22:32 09/03/17 22:37 Temperature 98.4 F Pulse Rate 97 H Respiratory Rate 18 Blood Pressure 115/65 09/03/17 23:15 09/03/17 23:55 09/04/17 04:00 Temperature 98.0 F Pulse Rate 94 H 96 H 98 H Respiratory Rate 18 18 Blood Pressure 119/64 121/69 09/04/17 05:00 09/04/17 05:01 09/04/17 08:00 Temperature 98.1 F Pulse Rate 92 H 93 H Respiratory Rate 16 Blood Pressure 116/63 108/74 Intake & Output 09/03/17 09/04/17 09/04/17 18:59 06:59 18:59 Weight 182 kg Other: Weight On Admission 182 kg - Constitutional no acute distress - Routine Respiratory Exam Present: CTA bilaterally - Routine Cardiovascular Exam Present: RRR - Routine Abdominal Exam Present: soft, normoactive bowel sounds - Routine Extremities Exam Present: full ROM - Routine Skin Exam Present: intact - Routine Neurological Exam Present: oriented X3 - Additional findings Additional findings: cervix 2 cm Results - Labs CBC & Chem 7: 09/03/17 17:05 09/03/17 17:05 Labs: Laboratory Results - last 24 hr 09/03/17 09/03/17 09/03/17 16:56 16:56 16:56 WBC RBC Hgb Hct MCV MCH MCHC RDW Plt Count MPV Neut % (Auto) Lymph % (Auto) [place] % (Auto) Eos % (Auto) Baso % (Auto) Neut # (Auto) Lymph # (Auto) [place] # (Auto) Eos # (Auto) Baso # (Auto) WBC Differential Differential Comment Sodium Potassium Chloride Carbon Dioxide Anion Gap BUN Creatinine Estimated GFR Random Glucose Calcium Total Bilirubin AST ALT Alkaline Phosphatase Total Protein Albumin Urine Color Urine Clarity Urine pH Ur Specific [place] Urine Protein Urine Glucose (UA) Urine Ketones Urine Occult Blood Urine Nitrate Urine Bilirubin Urine Urobilinogen Ur Leukocyte Esterase Urine RBC Urine WBC Ur Squamous Epith Cells Micro UA Comment Urine Culture Comments Clue Cells (Wet Prep) Ns Trichomonas (Wet Prep) Ns Yeast (Wet Prep) Ns Urine Opiates Screen Ur Barbiturates Screen Ur Amphetamines Screen U Benzodiazepines Scrn Urine Cocaine Screen U Cannabinoids Screen Chlam trachomat DNA PCR Not detected N.gonorrhoeae DNA (PCR) Not detected Group B Strep (PCR) Fibronectin Positive Blood Type Antibody Screen 09/03/17 09/03/17 09/03/17 16:56 16:56 16:56 WBC RBC Hgb Hct MCV MCH MCHC RDW Plt Count MPV Neut % (Auto) Lymph % (Auto) [place] % (Auto) Eos % (Auto) Baso % (Auto) Neut # (Auto) Lymph # (Auto) [place] # (Auto) Eos # (Auto) Baso # (Auto) WBC Differential Differential Comment Sodium Potassium Chloride Carbon Dioxide Anion Gap BUN Creatinine Estimated GFR Random Glucose Calcium Total Bilirubin AST ALT Alkaline Phosphatase Total Protein Albumin Urine Color Yellow Urine Clarity Clear Urine pH 8.0 Ur Specific [place] 1.011 Urine Protein Negative Urine Glucose (UA) Negative Urine Ketones Negative Urine Occult Blood Small H Urine Nitrate Negative Urine Bilirubin Negative Urine Urobilinogen Less than 2 Ur Leukocyte Esterase Negative Urine RBC 1 Urine WBC 4 Ur Squamous Epith Cells 3 Micro UA Comment Culture not ind Urine Culture Comments Culture not ind Clue Cells (Wet Prep) Trichomonas (Wet Prep) Yeast (Wet Prep) Urine Opiates Screen Neg Ur Barbiturates Screen Neg Ur Amphetamines Screen Neg U Benzodiazepines Scrn Neg Urine Cocaine Screen Neg U Cannabinoids Screen Pos H Chlam trachomat DNA PCR N.gonorrhoeae DNA (PCR) Group B Strep (PCR) Positive Fibronectin Blood Type Antibody Screen 09/03/17 09/03/17 09/03/17 17:05 17:05 17:05 WBC 13.0 H RBC 4.03 Hgb 12.1 Hct 35.3 MCV 87.6 MCH 30.1 MCHC 34.4 RDW 13.7 Plt Count 178 MPV 8.6 Neut % (Auto) 74.4 H Lymph % (Auto) 16.7 [place] % (Auto) 8.0 Eos % (Auto) 0.6 Baso % (Auto) 0.3 Neut # (Auto) 9.6 H Lymph # (Auto) 2.2 [place] # (Auto) 1.0 H Eos # (Auto) 0.1 Baso # (Auto) 0.0 WBC Differential . Differential Comment Auto diff final Sodium 138 Potassium 3.8 Chloride 107 Carbon Dioxide 23.4 Anion Gap 8 BUN 6 L Creatinine 1.00 Estimated GFR 75 L Random Glucose 78 Calcium 9.0 Total Bilirubin 0.3 AST 19 ALT 22 Alkaline Phosphatase 85 Total Protein 7.0 Albumin 2.9 L Urine Color Urine Clarity Urine pH Ur Specific [place] Urine Protein Urine Glucose (UA) Urine Ketones Urine Occult Blood Urine Nitrate Urine Bilirubin Urine Urobilinogen Ur Leukocyte Esterase Urine RBC Urine WBC Ur Squamous Epith Cells Micro UA Comment Urine Culture Comments Clue Cells (Wet Prep) Trichomonas (Wet Prep) Yeast (Wet Prep) Urine Opiates Screen Ur Barbiturates Screen Ur Amphetamines Screen U Benzodiazepines Scrn Urine Cocaine Screen U Cannabinoids Screen Chlam trachomat DNA PCR N.gonorrhoeae DNA (PCR) Group B Strep (PCR) Fibronectin Blood Type A Positive Antibody Screen Negative Caprini VTE Risk Assessment Caprini VTE Risk Assessment: No/Low Risk (score <= 1) Caprini Risk Assessment Model: Point Value = 1 Point Value = 2 Point Value = 3 Point Value = 5 Age 41-60 Minor surgery BMI > 25 kg/m2 Swollen legs Varicose veins or History of unexplained or recurrent spontaneous Oral contraceptives or hormone replacement Sepsis (< 1 month) Serious lung disease, including pneumonia (< 1 month) Abnormal pulmonary function Acute myocardial infarction Congestive heart failure (< 1 month) History of inflammatory bowel disease Medical patient at bed rest Age 61-74 Arthroscopic surgery Major open surgery (> 45 min) Laparoscopic surgery (> 45 min) Malignancy Confined to bed (> 72 hours) Immobilizing plaster cast Central venous access Age >= 75 History of VTE Family history of VTE Factor V Leiden Prothrombin [id number] Lupus anticoagulant Anticardiolipin antibodies Elevated serum homocysteine Heparin-induced thrombocytopenia Other congenital or acquired thrombophilia Stroke (< 1 month) Elective arthroplasty Hip, pelvis, or leg fracture Acute spinal cord injury (< 1 month) Prophylaxis Regimen: Total Risk Factor Score Risk Level Prophylaxis Regimen 0-1 Low Early ambulation 2 Moderate Order ONE of the following: *Sequential Compression Device (SCD) *Heparin 5000 units SQ BID 3-4 Higher Order ONE of the following medications: *Heparin 5000 units SQ TID *Enoxaparin/Lovenox 40 mg SQ daily (WT < 150 kg, CrCl > 30 mL/min) *Enoxaparin/Lovenox 30 mg SQ daily (WT < 150 kg, CrCl > 10-29 mL/min) *Enoxaparin/Lovenox 30 mg SQ BID (WT < 150 kg, CrCl > 30 mL/min) AND/OR *Sequential Compression Device (SCD) 5 or more Highest Order ONE of the following medications: *Heparin 5000 units SQ TID (Preferred with Epidurals) *Enoxaparin/Lovenox 40 mg SQ daily (WT < 150 kg, CrCl > 30 mL/min) *Enoxaparin/Lovenox 30 mg SQ daily (WT < 150 kg, CrCl > 10-29 mL/min) *Enoxaparin/Lovenox 30 mg SQ BID (WT < 150 kg, CrCl > 30 mL/min) AND *Sequential Compression Device (SCD) Assessment and Plan - Diagnosis (1) labor in third trimester Code(s): O60.03 - labor without delivery, third trimester Status: Acute - Plan magnesium and antibiotics and steroids
--- NOTE | 2017-09-04 08:27 | P.OBANTE ---
Subjective Antepartum ROS: Reports: Other Objective Vital Signs and I&O: Vital Signs 09/03/17 17:45 09/03/17 18:10 09/03/17 18:15 Temperature Pulse Rate 99 H 96 H Respiratory Rate 16 Blood Pressure 140/80 114/66 09/03/17 18:41 09/03/17 18:45 09/03/17 19:00 Temperature Pulse Rate 93 H 95 H Respiratory Rate Blood Pressure 117/69 122/66 114/71 09/03/17 19:10 09/03/17 19:16 09/03/17 19:55 Temperature 98.3 F Pulse Rate 99 H 96 H Respiratory Rate Blood Pressure 112/62 09/03/17 20:15 09/03/17 21:00 09/03/17 21:16 Temperature 98.4 F Pulse Rate 97 H 96 H Respiratory Rate 18 18 Blood Pressure 115/71 09/03/17 22:01 09/03/17 22:32 09/03/17 22:37 Temperature 98.4 F Pulse Rate 97 H Respiratory Rate 18 Blood Pressure 115/65 09/03/17 23:15 09/03/17 23:55 09/04/17 04:00 Temperature 98.0 F Pulse Rate 94 H 96 H 98 H Respiratory Rate 18 18 Blood Pressure 119/64 121/69 09/04/17 05:00 09/04/17 05:01 09/04/17 08:00 Temperature 98.1 F Pulse Rate 92 H 93 H Respiratory Rate 16 Blood Pressure 116/63 108/74 Intake & Output 09/03/17 09/04/17 09/04/17 18:59 06:59 18:59 Weight 182 kg Other: Weight On Admission 182 kg Lab and Micro Results: Laboratory Results - last 24 hr 09/03/17 09/03/17 09/03/17 16:56 16:56 16:56 WBC RBC Hgb Hct MCV MCH MCHC RDW Plt Count MPV Neut % (Auto) Lymph % (Auto) [place] % (Auto) Eos % (Auto) Baso % (Auto) Neut # (Auto) Lymph # (Auto) [place] # (Auto) Eos # (Auto) Baso # (Auto) WBC Differential Differential Comment Sodium Potassium Chloride Carbon Dioxide Anion Gap BUN Creatinine Estimated GFR Random Glucose Calcium Total Bilirubin AST ALT Alkaline Phosphatase Total Protein Albumin Urine Color Urine Clarity Urine pH Ur Specific [place] Urine Protein Urine Glucose (UA) Urine Ketones Urine Occult Blood Urine Nitrate Urine Bilirubin Urine Urobilinogen Ur Leukocyte Esterase Urine RBC Urine WBC Ur Squamous Epith Cells Micro UA Comment Urine Culture Comments Clue Cells (Wet Prep) Ns Trichomonas (Wet Prep) Ns Yeast (Wet Prep) Ns Urine Opiates Screen Ur Barbiturates Screen Ur Amphetamines Screen U Benzodiazepines Scrn Urine Cocaine Screen U Cannabinoids Screen Chlam trachomat DNA PCR Not detected N.gonorrhoeae DNA (PCR) Not detected Group B Strep (PCR) Fibronectin Positive Blood Type Antibody Screen 09/03/17 09/03/17 09/03/17 16:56 16:56 16:56 WBC RBC Hgb Hct MCV MCH MCHC RDW Plt Count MPV Neut % (Auto) Lymph % (Auto) [place] % (Auto) Eos % (Auto) Baso % (Auto) Neut # (Auto) Lymph # (Auto) [place] # (Auto) Eos # (Auto) Baso # (Auto) WBC Differential Differential Comment Sodium Potassium Chloride Carbon Dioxide Anion Gap BUN Creatinine Estimated GFR Random Glucose Calcium Total Bilirubin AST ALT Alkaline Phosphatase Total Protein Albumin Urine Color Yellow Urine Clarity Clear Urine pH 8.0 Ur Specific [place] 1.011 Urine Protein Negative Urine Glucose (UA) Negative Urine Ketones Negative Urine Occult Blood Small H Urine Nitrate Negative Urine Bilirubin Negative Urine Urobilinogen Less than 2 Ur Leukocyte Esterase Negative Urine RBC 1 Urine WBC 4 Ur Squamous Epith Cells 3 Micro UA Comment Culture not ind Urine Culture Comments Culture not ind Clue Cells (Wet Prep) Trichomonas (Wet Prep) Yeast (Wet Prep) Urine Opiates Screen Neg Ur Barbiturates Screen Neg Ur Amphetamines Screen Neg U Benzodiazepines Scrn Neg Urine Cocaine Screen Neg U Cannabinoids Screen Pos H Chlam trachomat DNA PCR N.gonorrhoeae DNA (PCR) Group B Strep (PCR) Positive Fibronectin Blood Type Antibody Screen 09/03/17 09/03/17 09/03/17 17:05 17:05 17:05 WBC 13.0 H RBC 4.03 Hgb 12.1 Hct 35.3 MCV 87.6 MCH 30.1 MCHC 34.4 RDW 13.7 Plt Count 178 MPV 8.6 Neut % (Auto) 74.4 H Lymph % (Auto) 16.7 [place] % (Auto) 8.0 Eos % (Auto) 0.6 Baso % (Auto) 0.3 Neut # (Auto) 9.6 H Lymph # (Auto) 2.2 [place] # (Auto) 1.0 H Eos # (Auto) 0.1 Baso # (Auto) 0.0 WBC Differential . Differential Comment Auto diff final Sodium 138 Potassium 3.8 Chloride 107 Carbon Dioxide 23.4 Anion Gap 8 BUN 6 L Creatinine 1.00 Estimated GFR 75 L Random Glucose 78 Calcium 9.0 Total Bilirubin 0.3 AST 19 ALT 22 Alkaline Phosphatase 85 Total Protein 7.0 Albumin 2.9 L Urine Color Urine Clarity Urine pH Ur Specific [place] Urine Protein Urine Glucose (UA) Urine Ketones Urine Occult Blood Urine Nitrate Urine Bilirubin Urine Urobilinogen Ur Leukocyte Esterase Urine RBC Urine WBC Ur Squamous Epith Cells Micro UA Comment Urine Culture Comments Clue Cells (Wet Prep) Trichomonas (Wet Prep) Yeast (Wet Prep) Urine Opiates Screen Ur Barbiturates Screen Ur Amphetamines Screen U Benzodiazepines Scrn Urine Cocaine Screen U Cannabinoids Screen Chlam trachomat DNA PCR N.gonorrhoeae DNA (PCR) Group B Strep (PCR) Fibronectin Blood Type A Positive Antibody Screen Negative Physical Exam: GENERAL: Well-nourished, well-developed patient. CARDIOVASCULAR: Regular rate and rhythm without murmurs, gallops, or rubs. RESPIRATORY: Breath sounds equal bilaterally. No accessory muscle use. ABDOMEN/GI: Abdomen soft, non-tender. Fundus: [-] GENITOURINARY: External Genitalia: intact and normal in appearance Cervix: [-] Dilatation: 2 cm last night Effacement: [-] Station: [-] Presentation: [-] Membranes: [-] Uterine Contractions: absent now FHT's: Category: [-] Baseline: [-] Reactive: [-] Variability: [-] Decels: [-] EXTREMITIES: No cyanosis or edema, non-tender, without signs of DVT. Assessment and Plan - Diagnosis (1) labor in third trimester Code(s): O60.03 - labor without delivery, third trimester Status: Acute (2) Hepatitis B affecting in third trimester Code(s): O98.413 - Viral hepatitis complicating , third trimester; B19.10 - Unspecified viral hepatitis B without hepatic coma Status: Acute - Plan magnesium and antibiotics and steroids, contractions less
[2017-09-04] MEDS ORDERED: Prenatal Vit/Ca/Iron/Folic Acid Tablet PO SCH (09:00)
[2017-09-04] MEDS: Acetaminophen 325 MG Tablet PO PRN ×2 (11:27→23:02)
[2017-09-04] MEDS: Mag Sulf/Water 40 gm/1000 ml 40 GM/1,000 ML BAG IV.CONT SCH (12:52)
[2017-09-04 15:39] VITALS: RESP 18
[2017-09-04] MEDS: Betamethasone Sod Phos/Acetate Inj 30 MG/5 ML Vial IM SCH (17:32)
--- NOTE | 2017-09-05 11:06 | P.OBANTE ---
Subjective Objective Vital Signs and I&O: Vital Signs 09/04/17 11:55 09/04/17 12:05 09/04/17 12:30 Temperature Pulse Rate 110 H 122 H 105 H Respiratory Rate Blood Pressure 120/62 09/04/17 12:55 09/04/17 13:55 09/04/17 14:50 Temperature Pulse Rate 117 H 109 H 105 H Respiratory Rate Blood Pressure 119/70 115/64 09/04/17 14:55 09/04/17 15:00 09/04/17 15:35 Temperature Pulse Rate 101 H 102 H 103 H Respiratory Rate Blood Pressure 106/57 L 09/04/17 15:38 09/04/17 15:55 09/04/17 17:30 Temperature 98.2 F Pulse Rate 97 H 95 H Respiratory Rate 18 Blood Pressure 105/60 104/65 09/04/17 17:35 09/04/17 17:40 09/04/17 19:49 Temperature Pulse Rate 102 H 104 H Respiratory Rate 18 Blood Pressure 09/04/17 19:50 09/04/17 19:52 09/04/17 22:00 Temperature 98.3 F Pulse Rate 110 H Respiratory Rate 18 Blood Pressure 138/72 09/04/17 23:00 09/04/17 23:01 09/05/17 02:47 Temperature 98.3 F Pulse Rate 101 H Respiratory Rate 18 18 Blood Pressure 117/60 09/05/17 04:36 09/05/17 04:37 09/05/17 08:19 Temperature 98.6 F 98.4 F Pulse Rate 89 Respiratory Rate 18 Blood Pressure 101/48 L 09/05/17 08:20 Temperature Pulse Rate 87 Respiratory Rate Blood Pressure 105/57 L Intake & Output 09/04/17 09/05/17 09/05/17 18:59 06:59 18:59 Intake Total 1000 / 1000 Balance 1000 / 1000 Intake: IV 1000 / 1000 Magnesium Sulfate/Water 40 gm/ 1000 / 1000 1000 ml Premix 40 gm In 1,000 ml @ 2 GM/HR 50 mls/hr IV.CONT Q24H [facility] Rx#:[id number] Physical Exam: GENERAL: Well-nourished, well-developed patient. CARDIOVASCULAR: Regular rate and rhythm without murmurs, gallops, or rubs. RESPIRATORY: Breath sounds equal bilaterally. No accessory muscle use. ABDOMEN/GI: Abdomen soft, non-tender. Fundus: [-] GENITOURINARY: External Genitalia: intact and normal in appearance Cervix: [-] Dilatation: 2 Effacement: [-] Station: [-] Presentation: vtx Membranes: [-] Uterine Contractions: [-] FHT's: Category:1 Baseline: [-] Reactive: [-] Variability: [-] Decels: [-] EXTREMITIES: No cyanosis or edema, non-tender, without signs of DVT. Assessment and Plan - Diagnosis (1) labor in third trimester Code(s): O60.03 - labor without delivery, third trimester Status: Acute (2) Hepatitis B affecting in third trimester Code(s): O98.413 - Viral hepatitis complicating , third trimester; B19.10 - Unspecified viral hepatitis B without hepatic coma Status: Acute (3) labor third trimester with delivery third trimester, fetus 1 Code(s): O60.14X1 - labor third trimester with delivery third trimester, fetus 1 Status: Acute Plan: dc home bed rest follow up 1 week - Plan magnesium and antibiotics and steroids, contractions less
--- NOTE | 2017-09-05 11:11 | P.DS ---
Date of admission: 09/03/17 17:00 Primary care physician: NOT REQUIRED Attending physician on discharge: Cecilio Carter Brief History from admission: 37 yo at 29 weeks who came in with contractions every 3-5 min. History of labor and deilvery at 30 and 32 weeks. Had been receiving robe and was working and having intercourse before contractions started DS: Diagnosis - Discharge Diagnosis (1) labor in third trimester Status: Acute (2) Hepatitis B affecting in third trimester Status: Acute (3) labor third trimester with delivery third trimester, fetus 1 Status: Acute DS: Summary Hospital Course: stayed in hospital 2 day had steroids x2 and magnesium - Time Spent with Patient Total time spent providing and/or coordinating discharge services: Exam Vital signs: Vital Signs 09/04/17 11:55 09/04/17 12:05 09/04/17 12:30 Temperature Pulse Rate 110 H 122 H 105 H Respiratory Rate Blood Pressure 120/62 09/04/17 12:55 09/04/17 13:55 09/04/17 14:50 Temperature Pulse Rate 117 H 109 H 105 H Respiratory Rate Blood Pressure 119/70 115/64 09/04/17 14:55 09/04/17 15:00 09/04/17 15:35 Temperature Pulse Rate 101 H 102 H 103 H Respiratory Rate Blood Pressure 106/57 L 09/04/17 15:38 09/04/17 15:55 09/04/17 17:30 Temperature 98.2 F Pulse Rate 97 H 95 H Respiratory Rate 18 Blood Pressure 105/60 104/65 09/04/17 17:35 09/04/17 17:40 09/04/17 19:49 Temperature Pulse Rate 102 H 104 H Respiratory Rate 18 Blood Pressure 09/04/17 19:50 09/04/17 19:52 09/04/17 22:00 Temperature 98.3 F Pulse Rate 110 H Respiratory Rate 18 Blood Pressure 138/72 09/04/17 23:00 09/04/17 23:01 09/05/17 02:47 Temperature 98.3 F Pulse Rate 101 H Respiratory Rate 18 18 Blood Pressure 117/60 09/05/17 04:36 09/05/17 04:37 09/05/17 08:19 Temperature 98.6 F 98.4 F Pulse Rate 89 Respiratory Rate 18 Blood Pressure 101/48 L 09/05/17 08:20 Temperature Pulse Rate 87 Respiratory Rate Blood Pressure 105/57 L Intake & Output 09/04/17 09/05/17 09/05/17 18:59 06:59 18:59 Intake Total 1000 / 1000 Balance 1000 / 1000 Intake: IV 1000 / 1000 Magnesium Sulfate/Water 40 gm/ 1000 / 1000 1000 ml Premix 40 gm In 1,000 ml @ 2 GM/HR 50 mls/hr IV.CONT Q24H [facility] Rx#:[id number] - Constitutional no acute distress - Routine Respiratory Exam Present: CTA bilaterally - Routine Cardiovascular Exam Present: RRR - Routine Abdominal Exam Present: soft, normoactive bowel sounds - Routine Neurological Exam Present: alert Results Procedures completed during hospitalization: 2 days in hospital no ctx now, steroids x2 doses Discharge Plan - Discharge Disposition Patient Disposition: 01 Discharge Home - Discharge Condition Condition: Good - Discharge Order Discharge Orders: Discharge Order (Routine); Ordered 09/05/17 Ordered By: Cecilio Carter - Physicians Team Primary Care Provider: NOT REQUIRED, Attending Provider: Cecilio Carter
[2017-09-05 11:15] VITALS: TEMP 98.6
[2017-10-04 13:44] VITALS: BP 105/51; PULSE 92
== END 2017-09-05 11:55 | disposition home or self-care (01) ==
LOC: HOBED 16:16 → H2E 17:00
PROVIDERS: ADMIT Obstetrics & Gynecology; ATTEND Obstetrics & Gynecology

== ENCOUNTER 2017-09-07 06:22 | Inpatient (IN) ==
--- NOTE | 2017-09-07 06:56 | ED ---
History of Present Illness Primary Care Physician: UNKNOWN History of Present Illness: Chief complaint: contractions care complicated by: advanced maternal age, chronic hypertension, Hepatitis B, history of labor x2, recent admission for threatened labor at 30 and 32 weeks 37 year old , IUP at 29.3 The patient presents complaining of the onset of painful contractions yesterday afternoon with increasing intensity and frequency since 3 pm yesterday. The contractions have worsened with time but there have been no alleviating factors and no attempting treatments. She reports she didn't come in sooner because she decided to "just wait it out." She reports the pain is 10/10. She thinks she has been having some leaking of small amounts of clear liquid since yesterday afternoon as well. FFN on 09/03/17 was positive and she received magnesium sulfate, IV antibiotics, and a course of betamethasone at that admission. She reports good movement, she denies vaginal bleeding. She reports back pain. She reports she urinates "a lot." Of note, she has been receiving outpatient Mekena injections. 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 PMH: HTN, Hepatitis B PSH: denies FH: denies SH: denies Weeks Gestation:: 29 Para: 3 : 2 Total # of Miscarriage(s): 0 Total # of Abortions (Spontaneous & Elective): 0 Review of Systems All other systems reviewed negative except as stated in HPI [facility] - Medical History Medical History: Medical History (Last Updated 09/03/17 @ 17:36 by Osiel Hayes MD) Chronic hypertension affecting Hepatitis B affecting - Tobacco History Second Hand Smoke Exposure: No Smoking Status: Never smoker Medications and Allergies Allergies Allergy/AdvReac Type Severity Reaction Status Date / Time Penicillins Allergy Severe Rash Verified 09/03/17 17:29 No Known Drug Allergies Allergy Unknown none Verified 09/03/17 16:24 No Known Allergies Allergy Unknown none Uncoded 09/03/17 16:24 Home Medications Medication Instructions Recorded Confirmed Type PNV 29-1 1 tab PO DAILY 09/04/17 09/07/17 History progesterone See Label Instructions .ROUTE 09/04/17 09/07/17 History .COMPLEX Exam Vital signs: Vital Signs 09/07/17 06:40 09/07/17 06:45 09/07/17 06:47 Temperature 100.4 F H Pulse Rate 111 H 110 H Respiratory Rate 20 Blood Pressure 141/79 H Narrative: GENERAL: Well-nourished, well-developed patient. SKIN: Warm and dry. HEAD: Normocephalic and atraumatic. EYES: No scleral icterus. No injection or drainage. ENT: No nasal drainage noted. Mucous membranes pink. Airway patent. NECK: Supple, trachea midline. No JVD. CARDIOVASCULAR: Regular rate and rhythm without murmurs, gallops, or rubs. RESPIRATORY: Breath sounds equal bilaterally. No accessory muscle use. BREASTS: Deferred ABDOMEN/GI: Abdomen soft, non-tender, bowel sounds present, no rebound, no guarding Gravid GENITOURINARY: External Genitalia: intact and normal in appearance. Normal BUS. No cervical or vaginal masses noted, grossly normal rugae, physiologic discharge noted. FFN obtained, Amnisure negative. SVE 3/60/-3. FHT's: heart tones are in the 150s with moderate long-term variability, good accelerations, no decelerations noted. heart tones were 1 in the 160s upon presentation but have returned to normal baseline. At present this is a category 1 heart rate tracing and reactive NST. Patient is farshad every 4-5 minutes. NST indications are IUP at 29 weeks, advanced maternal age, chronic hypertension, abdominal pain, hepatitis B. final diagnosis is IUP at 29 weeks, advanced maternal age, chronic hypertension, labor, hepatitis B. Will continue monitoring. EXTREMITIES: No cyanosis or edema. BACK: Nontender without obvious deformity. . NEUROLOGICAL: Awake and alert. Motor and sensory grossly within normal limits. Grossly normal muscle strength in all muscle groups. Normal speech. Normal memory/affect. Grossly normal ROM. Results - Labs CBC & Chem 7: 09/07/17 06:40 09/07/17 06:40 Assessment and Plan - Plan Assessment/plan: 1. IUP at 29.3 2. labor: Patient was admitted on 09/03/17 for labor and received a course of betamethasone, magnesium sulfate, and IV antibiotics. She had a positive fibronectin noted at that time. Patient presents with painful and frequent contractions with cervical dilation of approximately 3 cm. She will be admitted to Dr. Paz for labor. Will initiate magnesium sulfate and IV antibiotics for history of positive GBS by PCR. 3. well-being: Reassuring testing with reactive NST and category 1 heart rate tracing, will continue monitoring 4. Advanced maternal age 5. Chronic hypertension: Stable blood pressures that have not required medications during this 6. Hepatitis B 7. GBS PCR positive 8. T1 100.4: Unclear etiology at this time, Will monitor closely for elevated temperature. Awaiting UA results and CBC. No CVAT or other discrete evidence of pyelonephritis, no fundal tenderness or other evidence of chorioamnionitis. Dr. Paz informed of elevated temperature on arrival, assumed care for patient. Discharge Plan - Discharge Disposition Patient Disposition: Discharge Home - Discharge Condition Condition: Good - Discharge Order Discharge Orders: Discharge Order (Routine); Ordered 09/09/17 Ordered By: Cecilio Carter - Physicians Team Primary Care Provider: UNKNOWN, Attending Provider: Cecilio Carter
[2017-09-07] MEDS ORDERED: Zolpidem Tartrate 5 MG Tablet PO PRN (07:19)
[2017-09-07] MEDS ORDERED: Aluminum/Magnesium/Simethacone Susp 30 ML UDC PO PRN (07:19)
[2017-09-07] MEDS ORDERED: Acetaminophen 325 MG Tablet PO PRN (07:19)
[2017-09-07 07:46] LABS: Baso # (Auto) 0.1 th/mm3 (0.0-0.2); Baso % (Auto) 0.3 % (0.0-2.0); Eos % (Auto) 0.1 % (0.0-4.0); Hemoglobin 12.2 gm/dL (11.6-15.3); Lymph # (Auto) 1.2 th/mm3 (1.0-4.8); Lymph % (Auto) 6.2 % (9.0-44.0); Mean Corpuscular HGB Conc 33.8 % (32.0-36.0); Mean Corpuscular Hemoglobin 29.7 pg (27.0-34.0); Mean Corpuscular Volume 87.9 fL (80.0-100.0); Mean Platelet Volume 8.5 fL (7.0-11.0); Mono # (Auto) 2.1 th/mm3 (0.0-0.9); Neut # (Auto) 15.7 th/mm3 (1.8-7.7); Neut % (Auto) 82.4 % (16.0-70.0); Platelet Count 181 th/mm3 (150-450); Red Cell Distribution Width 14.3 % (11.6-17.2)
[2017-09-07] MEDS ORDERED: ceFAZolin 2 GM Premix Inj 2 GM/50 ML PIGGYBACK IV.SIG ONE (07:54)
[2017-09-07] MEDS ORDERED: Mag Sulf/Water 4 gm/100 ml 100 ML IV.SIG ONE ×2 (08:02→08:05)
[2017-09-07] MEDS ORDERED: Mag Sulf/Water 40 gm/1000 ml 40 GM/1,000 ML BAG IV.CONT ONE (08:05)
[2017-09-07 08:18] LABS: Albumin 2.9 g/dL (3.4-5.0); Calcium 9.1 mg/dL (8.5-10.1); Carbon Dioxide 19.8 meq/L (21.0-32.0)
[2017-09-07] MEDS: Mag Sulf/Water 40 gm/1000 ml 40 GM/1,000 ML BAG IV.CONT SCH (08:23)
[2017-09-07 08:26] LABS: Total Protein 6.9 g/dL (6.4-8.2)
[2017-09-07 08:27] LABS: Bacteria,Urine Few /hpf; Bilirubin,Urine Negative (Negative); Clarity,Urine Cloudy (Clear); Color,Urine Yellow (Yellw/Straw); Glucose,Urine (UA) Negative (Negative); Leukocyte Esterase,Urine Large (Negative); Nitrite,Urine Negative (Negative); Squamous Epithelial Cell,Urine 3 /hpf (0-5)
[2017-09-07] MEDS: Acetaminophen 325 MG Tablet PO PRN (08:44)
[2017-09-07] MEDS ORDERED: ceFAZolin 2 GM/NS 100 ML IV; Q8H IV.SIG ONE ×2 (09:00)
[2017-09-07] MEDS: Docusate Sodium 100 MG Capsule PO SCH (09:24)
[2017-09-07] MEDS: Prenatal Vit/Ca/Iron/Folic Acid Tablet PO SCH (09:25)
[2017-09-07] MEDS: Ferrous Sulfate 325 MG Tablet PO SCH ×2 (09:25→21:03)
[2017-09-07] MEDS ORDERED: Morphine Inj 4 MG/ML Vial IV.PUSH ONE (10:30)
--- NOTE | 2017-09-07 12:28 | P.HPOB ---
History of Present Illness Primary Care Physician: UNKNOWN History of Present Illness: Chief complaint: contractions care complicated by: advanced maternal age, chronic hypertension, Hepatitis B, history of labor x2, recent admission for threatened labor at 30 and 32 weeks 37 year old , IUP at 29.3 The patient presents complaining of the onset of painful contractions yesterday afternoon with increasing intensity and frequency since 3 pm yesterday. The contractions have worsened with time but there have been no alleviating factors and no attempting treatments. She reports she didn't come in sooner because she decided to "just wait it out." She reports the pain is 10/10. She thinks she has been having some leaking of small amounts of clear liquid since yesterday afternoon as well. FFN on 09/03/17 was positive and she received magnesium sulfate, IV antibiotics, and a course of betamethasone at that admission. She reports good movement, she denies vaginal bleeding. She reports back pain. She reports she urinates "a lot." Of note, she has been receiving outpatient Mekena injections. 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 This includes certification that hospital inpatient services are reasonable and necessary and in the case of services not specified as inpatient-only under 42 CFR 419.22(n), that they are appropriately provided as inpatient services in accordance to with the 2-midnight benchmark under 43 CFR 412.3(e) Estimated Total Length of Stay (Days): 3 Plans for Post Hospital Care: Home Review of Systems All other systems reviewed negative except as stated in HPI, other (back pain ) PMFSH - History History Provided By: Patient - Medical / Surgical Hx Neg / Unobtainable Surgical History: No Previous Surgery - Medical History Medical History: Medical History (Last Updated 09/03/17 @ 17:36 by Osiel Hayes MD) Chronic hypertension affecting Hepatitis B affecting - Tobacco History Second Hand Smoke Exposure: No Smoking Status: Never smoker - Travel History Recent Travel in the [place] Within the Last 8 Weeks: No Recent Travel Out of the Country Within the Last 8 Weeks: No Medications and Allergies Active Medications: Active Medications Acetaminophen (Tylenol) 650 mg PO Q4H PRN PRN Reason: PAIN SCALE 1 TO 5 Acetaminophen (Tylenol) 650 mg PO Q4H PRN PRN Reason: FEVER Last Admin: 09/07/17 08:44 Dose: 650 mg Al Hydrox/Mg Hydrox/Simethicone (Mag-Al Plus Susp Liq) 30 ml PO QID PRN PRN Reason: HEARTBURN Calcium Gluconate (Calcium Gluconate Inj) 1 gm IV.PUSH PRN PRN PRN Reason: Magnesium toxicity Docusate Sodium (Colace) 100 mg PO DAILY [facility] Last Admin: 09/07/17 09:24 Dose: Not Given Ferrous Sulfate (Ferosul) 325 mg PO BID [facility] Last Admin: 09/07/17 09:25 Dose: Not Given Lactated Ringer's (Lr 1000 Ml Inj) 1,000 mls @ 75 mls/hr IV.CONT .[id number] [facility] Last Admin: 09/07/17 08:56 Dose: 75 mls/hr Magnesium Sulfate (Magnesium Sulfate/Water 40 Gm/1000 Ml Premix) 40 gm in 1, 000 mls @ 50 mls/hr IV.CONT Q24H [facility] Last Admin: 09/07/17 08:23 Dose: 2 gm/hr, 50 mls/hr Cefazolin Sodium 2,000 mg/ (Sodium Chloride) 100 mls @ 200 mls/hr IV.SIG Q8H [facility] Ondansetron HCl (Zofran Odt) 4 mg PO Q6H PRN PRN Reason: NAUSEA OR VOMITING Vit/Calcium/Iron/Folic Ac (Stuartnatal Plus 3) 1 tab PO DAILY [facility] Last Admin: 09/07/17 09:25 Dose: Not Given Sodium Chloride (Ns Flush) 2 ml IV.FLUSH BID [facility] Last Admin: 09/07/17 09:25 Dose: Not Given Sodium Chloride (Ns Flush) 2 ml IV.FLUSH PRN PRN PRN Reason: FLUSH AFTER USING IV ACCESS Zolpidem Tartrate (Ambien) 5 mg PO HS PRN PRN Reason: SLEEP Allergies Allergy/AdvReac Type Severity Reaction Status Date / Time Penicillins Allergy Severe Rash Verified 09/03/17 17:29 No Known Drug Allergies Allergy Unknown none Verified 09/03/17 16:24 No Known Allergies Allergy Unknown none Uncoded 07/29/18 16:24 Home Medications Medication Instructions Recorded Confirmed Type PNV 29-1 1 tab PO DAILY 09/04/17 09/07/17 History progesterone See Label Instructions .ROUTE 09/04/17 09/07/17 History .COMPLEX Exam Vital signs: Vital Signs 09/07/17 06:40 09/07/17 06:45 09/07/17 06:47 Temperature 100.4 F H Pulse Rate 111 H 110 H Respiratory Rate 20 Blood Pressure 141/79 H 09/07/17 06:55 09/07/17 07:00 09/07/17 07:25 Temperature Pulse Rate 117 H 118 H 118 H Respiratory Rate Blood Pressure 120/63 09/07/17 07:55 09/07/17 08:05 09/07/17 08:23 Temperature 102.1 F H Pulse Rate 122 H 123 H 133 H Respiratory Rate 18 Blood Pressure 120/56 L 09/07/17 08:30 09/07/17 08:35 09/07/17 08:40 Temperature Pulse Rate 145 H 141 H 132 H Respiratory Rate Blood Pressure 124/51 L 128/63 09/07/17 08:50 09/07/17 08:55 09/07/17 09:00 Temperature Pulse Rate 134 H 132 H 134 H Respiratory Rate Blood Pressure 127/66 09/07/17 09:05 09/07/17 09:10 09/07/17 09:15 Temperature Pulse Rate 126 H 127 H 132 H Respiratory Rate Blood Pressure 09/07/17 09:55 09/07/17 10:00 09/07/17 10:35 Temperature 99.4 F Pulse Rate 128 H 119 H 130 H Respiratory Rate 20 Blood Pressure 114/58 L 09/07/17 10:45 09/07/17 10:55 09/07/17 11:00 Temperature Pulse Rate 118 H 124 H 115 H Respiratory Rate Blood Pressure 104/52 L Intake & Output 09/06/17 09/07/17 09/07/17 18:59 06:59 18:59 Weight 83 kg - Constitutional mild distress (pain right flank) - Routine Respiratory Exam Present: CTA bilaterally - Routine Cardiovascular Exam Present: RRR - Routine Abdominal Exam Present: soft, normoactive bowel sounds - Routine Extremities Exam Present: full ROM - Routine Skin Exam Present: intact - Routine Neurological Exam Present: oriented X3 (cervix 3 cm ) Results - Labs CBC & Chem 7: 09/07/17 06:40 09/07/17 06:40 Labs: Laboratory Results - last 24 hr 09/07/17 09/07/17 09/07/17 06:40 06:40 06:40 WBC 19.0 H RBC 4.10 Hgb 12.2 Hct 36.0 MCV 87.9 MCH 29.7 MCHC 33.8 RDW 14.3 Plt Count 181 MPV 8.5 Neut % (Auto) 82.4 H Lymph % (Auto) 6.2 L [place] % (Auto) 11.0 H Eos % (Auto) 0.1 Baso % (Auto) 0.3 Neut # (Auto) 15.7 H Lymph # (Auto) 1.2 [place] # (Auto) 2.1 H Eos # (Auto) 0.0 Baso # (Auto) 0.1 WBC Differential . Differential Comment Auto diff final Sodium 137 Potassium 4.0 Chloride 104 Carbon Dioxide 19.8 L Anion Gap 13 BUN 8 Creatinine 1.01 H Estimated GFR 74 L Random Glucose 109 H Calcium 9.1 Total Bilirubin 0.5 Direct Bilirubin 0.1 Indirect Bilirubin 0.4 AST 20 ALT 26 Alkaline Phosphatase 85 Total Protein 6.9 Albumin 2.9 L Urine Color Yellow Urine Clarity Cloudy H Urine pH 7.0 Ur Specific [place] 1.010 Urine Protein 100 H Urine Glucose (UA) Negative Urine Ketones Negative Urine Occult Blood Moderate H Urine Nitrate Negative Urine Bilirubin Negative Urine Urobilinogen Less than 2 Ur Leukocyte Esterase Large H Urine RBC 32 H Urine WBC Urine WBC Clumps Few H Ur Squamous Epith Cells 3 Urine Bacteria Few H Micro UA Comment Culture indicated Urine Culture Comments Culture indicated Caprini VTE Risk Assessment Caprini VTE Risk Assessment: No/Low Risk (score <= 1) Caprini Risk Assessment Model: Point Value = 1 Point Value = 2 Point Value = 3 Point Value = 5 Age 41-60 Minor surgery BMI > 25 kg/m2 Swollen legs Varicose veins or History of unexplained or recurrent spontaneous Oral contraceptives or hormone replacement Sepsis (< 1 month) Serious lung disease, including pneumonia (< 1 month) Abnormal pulmonary function Acute myocardial infarction Congestive heart failure (< 1 month) History of inflammatory bowel disease Medical patient at bed rest Age 61-74 Arthroscopic surgery Major open surgery (> 45 min) Laparoscopic surgery (> 45 min) Malignancy Confined to bed (> 72 hours) Immobilizing plaster cast Central venous access Age >= 75 History of VTE Family history of VTE Factor V Leiden Prothrombin [id number] Lupus anticoagulant Anticardiolipin antibodies Elevated serum homocysteine Heparin-induced thrombocytopenia Other congenital or acquired thrombophilia Stroke (< 1 month) Elective arthroplasty Hip, pelvis, or leg fracture Acute spinal cord injury (< 1 month) Prophylaxis Regimen: Total Risk Factor Score Risk Level Prophylaxis Regimen 0-1 Low Early ambulation 2 Moderate Order ONE of the following: *Sequential Compression Device (SCD) *Heparin 5000 units SQ BID 3-4 Higher Order ONE of the following medications: *Heparin 5000 units SQ TID *Enoxaparin/Lovenox 40 mg SQ daily (WT < 150 kg, CrCl > 30 mL/min) *Enoxaparin/Lovenox 30 mg SQ daily (WT < 150 kg, CrCl > 10-29 mL/min) *Enoxaparin/Lovenox 30 mg SQ BID (WT < 150 kg, CrCl > 30 mL/min) AND/OR *Sequential Compression Device (SCD) 5 or more Highest Order ONE of the following medications: *Heparin 5000 units SQ TID (Preferred with Epidurals) *Enoxaparin/Lovenox 40 mg SQ daily (WT < 150 kg, CrCl > 30 mL/min) *Enoxaparin/Lovenox 30 mg SQ daily (WT < 150 kg, CrCl > 10-29 mL/min) *Enoxaparin/Lovenox 30 mg SQ BID (WT < 150 kg, CrCl > 30 mL/min) AND *Sequential Compression Device (SCD) Assessment and Plan - Diagnosis (1) Pyelonephritis Code(s): N12 - Tubulo-interstitial nephritis, not specified as acute or chronic Status: Acute (2) Hepatitis B affecting in third trimester Code(s): O98.413 - Viral hepatitis complicating , third trimester; B19.10 - Unspecified viral hepatitis B without hepatic coma Status: Acute - Plan Assessment/plan: 1. IUP at 29.3 2. labor: Patient was admitted on 09/03/17 for labor and received a course of betamethasone, magnesium sulfate, and IV antibiotics. She had a positive fibronectin noted at that time. Patient presents with painful and frequent contractions with cervical dilation of approximately 3 cm. She will be admitted to Dr. Paz for labor. Will initiate magnesium sulfate and IV antibiotics for history of positive GBS by PCR. 3. well-being: Reassuring testing with reactive NST and category 1 heart rate tracing, will continue monitoring 4. Advanced maternal age 5. Chronic hypertension: Stable blood pressures that have not required medications during this 6. Hepatitis B 7. GBS PCR positive 8. T1 100.4: Unclear etiology at this time, Will monitor closely for elevated temperature. Awaiting UA results and CBC. No CVAT 10 pyelonephritis with fever bllod CX and ancef started
[2017-09-07] MEDS ORDERED: ceFAZolin Inj 2,000 MG in Sodium Chlor 0.9% Inj 80 ML IV.SIG SCH (19:00)
[2017-09-08] MEDS: Mag Sulf/Water 40 gm/1000 ml 40 GM/1,000 ML BAG IV.CONT SCH (07:17)
[2017-09-08] MEDS: ceFAZolin Inj 2,000 MG in Sodium Chlor 0.9% Inj 80 ML IV.SIG SCH ×2 (07:55→17:00)
--- NOTE | 2017-09-08 08:39 | P.OBANTE ---
Subjective Interval History: pyelonephritis, right flank pain, Objective Vital Signs and I&O: Vital Signs 09/07/17 08:40 09/07/17 08:50 09/07/17 08:55 Temperature Pulse Rate 132 H 134 H 132 H Respiratory Rate Blood Pressure 09/07/17 09:00 09/07/17 09:05 09/07/17 09:10 Temperature Pulse Rate 134 H 126 H 127 H Respiratory Rate Blood Pressure 127/66 09/07/17 09:15 09/07/17 09:55 09/07/17 10:00 Temperature 99.4 F Pulse Rate 132 H 128 H 119 H Respiratory Rate 20 Blood Pressure 114/58 L 09/07/17 10:35 09/07/17 10:45 09/07/17 10:55 Temperature Pulse Rate 130 H 118 H 124 H Respiratory Rate Blood Pressure 09/07/17 11:00 09/07/17 12:00 09/07/17 12:10 Temperature Pulse Rate 115 H 115 H Respiratory Rate 22 Blood Pressure 104/52 L 106/55 L 09/07/17 12:47 09/07/17 12:50 09/07/17 12:55 Temperature 98.5 F Pulse Rate 112 H 111 H 109 H Respiratory Rate 18 Blood Pressure 113/69 09/07/17 13:35 09/07/17 14:05 09/07/17 14:30 Temperature Pulse Rate 109 H 110 H 107 H Respiratory Rate Blood Pressure 118/62 09/07/17 15:00 09/07/17 15:10 09/07/17 15:50 Temperature Pulse Rate 110 H 114 H 114 H Respiratory Rate Blood Pressure 102/54 L 09/07/17 15:55 09/07/17 15:58 09/07/17 16:05 Temperature 99.8 F H Pulse Rate 122 H 126 H Respiratory Rate Blood Pressure 130/73 09/07/17 16:55 09/07/17 18:35 09/07/17 18:38 Temperature Pulse Rate 122 H 112 H Respiratory Rate 18 Blood Pressure 107/50 L 09/07/17 18:55 09/07/17 19:00 09/07/17 20:00 Temperature Pulse Rate 113 H Respiratory Rate Blood Pressure 107/60 107/58 L 09/07/17 20:55 09/07/17 20:58 09/07/17 21:00 Temperature 98.1 F Pulse Rate 108 H Respiratory Rate 18 Blood Pressure 106/60 09/07/17 23:00 09/08/17 00:00 09/08/17 00:26 Temperature 97.4 F L Pulse Rate Respiratory Rate 18 Blood Pressure 115/68 114/67 09/08/17 01:00 09/08/17 01:55 09/08/17 03:00 Temperature Pulse Rate 103 H 95 H Respiratory Rate 16 18 Blood Pressure 110/66 108/61 09/08/17 05:00 09/08/17 06:00 09/08/17 07:00 Temperature 98.2 F Pulse Rate 98 H 97 H Respiratory Rate 18 18 Blood Pressure 119/71 116/71 09/08/17 07:09 09/08/17 07:15 09/08/17 07:20 Temperature Pulse Rate 99 H 104 H 113 H Respiratory Rate 18 Blood Pressure 97/41 L 09/08/17 07:55 09/08/17 08:05 09/08/17 08:08 Temperature Pulse Rate 105 H 94 H 98 H Respiratory Rate Blood Pressure 92/43 L 99/45 L Intake & Output 09/07/17 09/08/17 09/08/17 18:59 06:59 18:59 Intake Total 1999 Balance 1999 Weight 83 kg Intake: IV 1999 LR 1000 mL Inj 1,000 ML @ 75 1000 / 1000 mls/hr IV.CONT .[id number] [facility] Rx# :[id number] Magnesium Sulfate/Water 40 gm/ 1000 / 1000 1000 ml Premix 40 gm In 1,000 ml @ 2 GM/HR 50 mls/hr IV.CONT Q24H [facility] Rx#:[id number] Physical Exam: GENERAL: Well-nourished, well-developed patient. CARDIOVASCULAR: Regular rate and rhythm without murmurs, gallops, or rubs. RESPIRATORY: Breath sounds equal bilaterally. No accessory muscle use. ABDOMEN/GI: Abdomen soft, non-tender. Fundus: [-] GENITOURINARY: External Genitalia: intact and normal in appearance Cervix: [-] Dilatation: 3 cm admission Effacement: [-] Station: [-] Presentation: [-] Membranes: [-] Uterine Contractions: [-] FHT's: Category: 1 Baseline: [-] Reactive: [-] Variability: [-] Decels: [-] EXTREMITIES: No cyanosis or edema, non-tender, without signs of DVT. Assessment and Plan - Diagnosis (1) Pyelonephritis Code(s): N12 - Tubulo-interstitial nephritis, not specified as acute or chronic Status: Acute (2) Hepatitis B affecting in third trimester Code(s): O98.413 - Viral hepatitis complicating , third trimester; B19.10 - Unspecified viral hepatitis B without hepatic coma Status: Acute - Plan Assessment/plan: 1. IUP at 29.3 2. labor: Patient was admitted on 09/03/17 for labor and received a course of betamethasone, magnesium sulfate, and IV antibiotics. She had a positive fibronectin noted at that time. Patient presents with painful and frequent contractions with cervical dilation of approximately 3 cm. She will be admitted to Dr. Paz for labor. Will initiate magnesium sulfate and IV antibiotics for history of positive GBS by PCR. 3. well-being: Reassuring testing with reactive NST and category 1 heart rate tracing, will continue monitoring 4. Advanced maternal age 5. Chronic hypertension: Stable blood pressures that have not required medications during this 6. Hepatitis B 7. GBS PCR positive 8. T1 100.4: Unclear etiology at this time, Will monitor closely for elevated temperature. Awaiting UA results and CBC. No CVAT 10 pyelonephritis with fever bllod CX and ancef started
[2017-09-08] MEDS: Prenatal Vit/Ca/Iron/Folic Acid Tablet PO SCH (08:40)
[2017-09-08] MEDS: Ferrous Sulfate 325 MG Tablet PO SCH ×2 (08:40→21:10)
[2017-09-08] MEDS: Docusate Sodium 100 MG Capsule PO SCH (08:40)
[2017-09-09] MEDS: ceFAZolin Inj 2,000 MG in Sodium Chlor 0.9% Inj 80 ML IV.SIG SCH ×3 (00:01→16:24)
--- NOTE | 2017-09-09 07:09 | P.OBANTE ---
Subjective Interval History: pyelonephritis, right flank pain, improving TOLLIVER comes and goes Antepartum ROS: Reports: Other Objective Vital Signs and I&O: Vital Signs 09/08/17 07:09 09/08/17 07:15 09/08/17 07:20 Temperature Pulse Rate 99 H 104 H 113 H Respiratory Rate 18 Blood Pressure 97/41 L 09/08/17 07:55 09/08/17 08:05 09/08/17 08:08 Temperature Pulse Rate 105 H 94 H 98 H Respiratory Rate Blood Pressure 92/43 L 99/45 L 09/08/17 08:45 09/08/17 08:55 09/08/17 09:00 Temperature 97.5 F L Pulse Rate 97 H 94 H 97 H Respiratory Rate 18 Blood Pressure 107/59 L 09/08/17 09:30 09/08/17 09:50 09/08/17 09:55 Temperature Pulse Rate 91 H 90 107 H Respiratory Rate Blood Pressure 09/08/17 10:40 09/08/17 11:15 09/08/17 11:35 Temperature 98.2 F Pulse Rate 102 H 91 H 92 H Respiratory Rate 18 Blood Pressure 97/47 L 09/08/17 16:24 09/08/17 16:50 09/08/17 18:55 Temperature 98.9 F Pulse Rate 91 H 70 Respiratory Rate 16 Blood Pressure 118/47 L 09/08/17 21:08 09/08/17 23:01 09/08/17 23:57 Temperature 98.8 F 98.5 F Pulse Rate 97 H Respiratory Rate 16 16 14 Blood Pressure 106/58 L 09/08/17 23:59 09/09/17 03:32 09/09/17 03:33 Temperature 98.6 F Pulse Rate 93 H 93 H Respiratory Rate 14 Blood Pressure 118/65 115/57 L Intake & Output 09/08/17 09/09/17 09/09/17 18:59 06:59 18:59 Intake Total 100 / 100 200 / 200 Balance 100 / 100 200 / 200 Intake: IV 100 / 100 200 / 200 Ancef Inj 2,000 MG In NS Inj 80 100 / 100 200 / 200 ML @ 200 mls/hr IV.SIG Q8H [facility] Rx#:[id number] Lab and Micro Results: Laboratory Results - last 24 hr 09/07/17 06:40 Urine Color Yellow Urine Clarity Cloudy H Urine pH 7.0 Ur Specific [place] 1.010 Urine Protein 100 H Urine Glucose (UA) Negative Urine Ketones Negative Urine Occult Blood Moderate H Urine Nitrate Negative Urine Bilirubin Negative Urine Urobilinogen Less than 2 Ur Leukocyte Esterase Large H Urine RBC 32 H Urine WBC Urine WBC Clumps Few H Ur Squamous Epith Cells 3 Urine Bacteria Few H Micro UA Comment Culture indicated Urine Culture Comments Culture indicated Microbiology 09/07/17 06:40 Urine Culture - Preliminary Clean Catch Urine gram negative rods 09/07/17 10:35 Aerobic Blood Culture - Preliminary Blood - Peripheral No growth in 1 day Anaerobic Blood Culture - Preliminary No growth in 1 day 09/07/17 10:30 Aerobic Blood Culture - Preliminary Blood - Peripheral No growth in 1 day Anaerobic Blood Culture - Preliminary No growth in 1 day Physical Exam: GENERAL: Well-nourished, well-developed patient. CARDIOVASCULAR: Regular rate and rhythm without murmurs, gallops, or rubs. RESPIRATORY: Breath sounds equal bilaterally. No accessory muscle use. ABDOMEN/GI: Abdomen soft, non-tender. Fundus: [-] GENITOURINARY: External Genitalia: intact and normal in appearance Cervix: [-] Dilatation: 3 Effacement: [-] Station: [-] Presentation: [-] Membranes: [-] Uterine Contractions: [-] FHT's: Category: 1 Baseline: [-] Reactive: [-] Variability: [-] Decels: [-] EXTREMITIES: No cyanosis or edema, non-tender, without signs of DVT. Assessment and Plan - Diagnosis (1) Pyelonephritis Code(s): N12 - Tubulo-interstitial nephritis, not specified as acute or chronic Status: Acute (2) Hepatitis B affecting in third trimester Code(s): O98.413 - Viral hepatitis complicating , third trimester; B19.10 - Unspecified viral hepatitis B without hepatic coma Status: Acute - Plan Assessment/plan: 1. IUP at 29.3 2. labor: Patient was admitted on 09/03/17 for labor and received a course of betamethasone, magnesium sulfate, and IV antibiotics. She had a positive fibronectin noted at that time. Patient presents with painful and frequent contractions with cervical dilation of approximately 3 cm. She will be admitted to Dr. Paz for labor. Will initiate magnesium sulfate and IV antibiotics for history of positive GBS by PCR. 3. well-being: Reassuring testing with reactive NST and category 1 heart rate tracing, will continue monitoring 4. Advanced maternal age 5. Chronic hypertension: Stable blood pressures that have not required medications during this 6. Hepatitis B 7. GBS PCR positive 8. T1 100.4: Unclear etiology at this time, Will monitor closely for elevated temperature. Awaiting UA results and CBC. No CVAT 10 pyelonephritis with fever bllod CX and ancef started
[2017-09-09] MEDS: Ferrous Sulfate 325 MG Tablet PO SCH (08:30)
[2017-09-09] MEDS: Docusate Sodium 100 MG Capsule PO SCH (08:30)
[2017-09-09] MEDS: Prenatal Vit/Ca/Iron/Folic Acid Tablet PO SCH (08:30)
--- NOTE | 2017-09-09 16:09 | P.PNOB ---
Assessment and Plan (1) Pyelonephritis Status: Acute Assessment and plan: ecoli in urine and treat with macrobid (2) Hepatitis B affecting in third trimester Status: Acute - Time Spent With Patient Total time spent is greater than 50% in coordination of care (as documented) at patient's floor/unit and/or counseling patient: Subjective Subjective: patient reports feeling better (ready to DC home) Physical Exam Vital signs: Temp Pulse Resp BP 98.8 F 107 H 16 124/65 09/09/17 15:23 09/09/17 15:23 09/09/17 15:20 09/09/17 15:23 - Constitutional no acute distress - Routine Respiratory Exam Present: CTA bilaterally - Routine Abdominal Exam Present: soft, normoactive bowel sounds Results - Labs CBC & Chem 7: 09/07/17 06:40 09/07/17 06:40
--- NOTE | 2017-09-09 16:16 | P.DS ---
Date of admission: 09/07/17 07:34 Primary care physician: UNKNOWN Brief History from admission: Chief complaint: contractions care complicated by: advanced maternal age, chronic hypertension, Hepatitis B, history of labor x2, recent admission for threatened labor at 30 and 32 weeks 37 year old , IUP at 29.3 The patient presents complaining of the onset of painful contractions yesterday afternoon with increasing intensity and frequency since 3 pm yesterday. The contractions have worsened with time but there have been no alleviating factors and no attempting treatments. She reports she didn't come in sooner because she decided to "just wait it out." She reports the pain is 10/10. She thinks she has been having some leaking of small amounts of clear liquid since yesterday afternoon as well. FFN on 09/03/17 was positive and she received magnesium sulfate, IV antibiotics, and a course of betamethasone at that admission. She reports good movement, she denies vaginal bleeding. She reports back pain. She reports she urinates "a lot." Of note, she has been receiving outpatient M[place] injections. 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 PMH: HTN, Hepatitis B PSH: denies FH: denies SH: denies DS: Diagnosis - Discharge Diagnosis (1) Pyelonephritis Status: Acute (2) Hepatitis B affecting in third trimester Status: Acute DS: Medications - Discharge Medications Prescriptions: nitrofurantoin monohyd/m-cryst [Macrobid] 100 mg PO Q12H #14 cap DS: Summary Hospital Course: admit with pyelo and flank pain and ecoli in urine - Time Spent with Patient Total time spent providing and/or coordinating discharge services: Less than 30 minutes Exam Vital signs: Vital Signs 09/08/17 16:24 09/08/17 16:50 09/08/17 18:55 Temperature 98.9 F Pulse Rate 91 H 70 Respiratory Rate 16 Blood Pressure 118/47 L 09/08/17 21:08 09/08/17 23:01 09/08/17 23:57 Temperature 98.8 F 98.5 F Pulse Rate 97 H Respiratory Rate 16 16 14 Blood Pressure 106/58 L 09/08/17 23:59 09/09/17 03:32 09/09/17 03:33 Temperature 98.6 F Pulse Rate 93 H 93 H Respiratory Rate 14 Blood Pressure 118/65 115/57 L 09/09/17 08:39 09/09/17 08:40 09/09/17 15:20 Temperature 98.7 F Pulse Rate 100 H Respiratory Rate 18 16 Blood Pressure 120/58 L 09/09/17 15:23 Temperature 98.8 F Pulse Rate 107 H Respiratory Rate Blood Pressure 124/65 Intake & Output 09/08/17 09/09/17 09/09/17 18:59 06:59 18:59 Intake Total 100 / 100 200 / 200 Balance 100 / 100 200 / 200 Intake: IV 100 / 100 200 / 200 Ancef Inj 2,000 MG In NS Inj 80 100 / 100 200 / 200 ML @ 200 mls/hr IV.SIG Q8H [facility] Rx#:[id number] - Routine HEENT Exam Head: Present: normocephalic Results Procedures completed during hospitalization: none Labs on day of discharge: Preliminary micro results at discharge 09/07/17 10:35 Aerobic Blood Culture - Preliminary Blood - Peripheral No growth in 2 days Anaerobic Blood Culture - Preliminary No growth in 2 days 09/07/17 10:30 Aerobic Blood Culture - Preliminary Blood - Peripheral No growth in 2 days Anaerobic Blood Culture - Preliminary No growth in 2 days Discharge Plan - Discharge Disposition Patient Disposition: 01 Discharge Home - Discharge Condition Condition: Good - Discharge Order Discharge Orders: Discharge Order (Routine); Ordered 09/09/17 Ordered By: Cecilio Carter - Physicians Team Primary Care Provider: UNKNOWN, Attending Provider: Cecilio Carter
[2017-09-09] MEDS: Acetaminophen 325 MG Tablet PO PRN (16:50)
[2017-09-12 17:51] VITALS: PULSE 107
[2017-09-12 17:59] VITALS: BP 124/65; TEMP 100.2
[2017-09-12 18:20] VITALS: RESP 16
== END 2017-09-09 17:25 | disposition home or self-care (01) ==
LOC: HOBED 06:22 → H2E 07:34
PROVIDERS: ADMIT Obstetrics & Gynecology; ATTEND Obstetrics & Gynecology

== ENCOUNTER 2017-10-01 14:52 | Inpatient (IN) ==
[2017-10-01] MEDS ORDERED: Sod Chloride 0.9% Inj 1,000 ML IV.CONT PRN (15:55)
[2017-10-01] MEDS ORDERED: Oxytocin 30 Units/500ml Premix 30 UNITS/500 ML BAG IV.SIG ONE (15:55)
[2017-10-01] MEDS ORDERED: Naloxone Inj 0.4 MG/ML Vial IV.PUSH PRN (15:55)
[2017-10-01] MEDS ORDERED: Sodium Chlor 0.9% Inj 500 ML IV.SIG PRN (15:55)
[2017-10-01] MEDS ORDERED: fentaNYL Citrate Inj 100 MCG/2 ML Ampul IV.PUSH PRN ×2 (15:55)
[2017-10-01] MEDS ORDERED: Citric Acid/Sodium Citrate Liq 30 ML UDC PO SCH (16:00)
--- NOTE | 2017-10-01 16:06 | ED ---
History of Present Illness Primary Care Physician: No Primary Care Physician History of Present Illness: 37-year-old 3 para 2 at 32 weeks 6 days gestation who reports spontaneous rupture of membranes at 230 this afternoon. This was confirmed by admission examination. She denies contractions, bleeding or unusual discharge. Obstetrical history: The patient has been under the care of Dr. Paz for this and she has been admitted for labor management on 2 occasions. She received steroids on September 07. She was noted to be group B strep negative on September 03. She is hepatitis B surface antigen negative, #3 history of hypertension with no medication this - Inpatient Certification I certify that the inpatient services were ordered in accordance with Medicare regulations governing the order. This includes certification that hospital inpatient services are reasonable and necessary and in the case of services not specified as inpatient-only under 42 CFR 419.22(n), that they are appropriately provided as inpatient services in accordance to with the 2-midnight benchmark under 43 CFR 412.3(e) Estimated Total Length of Stay (Days): 5 Plans for Post Hospital Care: Home Review of Systems All other systems reviewed negative except as stated in HPI PMFSH - History History Provided By: Patient - Medical / Surgical Hx Neg / Unobtainable Surgical History: No Previous Surgery - Medical History Medical History: Medical History (Last Updated 09/03/17 @ 17:36 by Osiel Hayes MD) Chronic hypertension affecting Hepatitis B affecting - Tobacco History Second Hand Smoke Exposure: No Smoking Status: Never smoker - Alcohol History How Often Do You Have a Drink Containing Alcohol: Never - Substance Use History Substance History: No History of Abuse - Travel History History of Recent Travel: No Recent Travel in the [place] Within the Last 8 Weeks: No Recent Travel Out of the Country Within the Last 8 Weeks: No Medications and Allergies Active Medications: Active Medications Calcium Gluconate (Calcium Gluconate Inj) 1 gm IV.PUSH ONCE PRN PRN Reason: Magnesium toxicity Lactated Ringer's (Lr 1000 Ml Inj) 1,000 mls @ 125 mls/hr IV.CONT .Q8H [facility] Ondansetron HCl (Zofran Odt) 4 mg PO Q6H PRN PRN Reason: NAUSEA OR VOMITING Sodium Chloride (Ns Flush) 2 ml IV.FLUSH Q24H [facility] Stop: 10/02/17 16:01 Sodium Chloride (Ns Flush) 2 ml IV.FLUSH BID [facility] Allergies Allergy/AdvReac Type Severity Reaction Status Date / Time Penicillins Allergy Severe Rash Verified 09/03/17 17:29 No Known Drug Allergies Allergy Unknown none Verified 09/03/17 16:24 No Known Allergies Allergy Unknown none Uncoded 09/03/17 16:24 Home Medications Medication Instructions Recorded Confirmed Type PNV 29-1 1 tab PO DAILY 09/04/17 09/07/17 History progesterone See Label Instructions .ROUTE 09/04/17 09/07/17 History .COMPLEX Exam Vital signs: Vital Signs 10/01/17 15:08 10/01/17 15:11 Temperature 98.6 F Pulse Rate 93 H Respiratory Rate 16 Blood Pressure 125/64 Narrative: GENERAL: Well-nourished, well-developed patient. SKIN: Warm and dry. HEAD: Normocephalic and atraumatic. EYES: No scleral icterus. No injection or drainage. ENT: No nasal drainage noted. Mucous membranes pink. Airway patent. NECK: Supple, trachea midline. No JVD. CARDIOVASCULAR: Regular rate and rhythm without murmurs, gallops, or rubs. RESPIRATORY: Breath sounds equal bilaterally. No accessory muscle use. ABDOMEN/GI: Abdomen soft, non-tender, bowel sounds present, no rebound, no guarding Gravid to [-] weeks size Fundal Height: [33-] GENITOURINARY: External Genitalia: intact and normal in appearance BUS glands: [Negative-] Cervix: [-] Dilatation: [-3] Effacement: [-80] Station: [-2-] Presentation: [-vtx] Membranes: [ruptured] Uterine Contractions: [-Irritability] FHT's: Category: [1-] Baseline: [-130] Reactive: [-Yes] Variability: [-] Decels: [-] EXTREMITIES: No cyanosis or edema. BACK: Nontender without obvious deformity. No CVA tenderness. NEUROLOGICAL: Awake and alert. Motor and sensory grossly within normal limits. Five out of 5 muscle strength in all muscle groups. Normal speech. Assessment and Plan - Plan Assessment: 37-year-old 3 para 0202 at 32+ weeks gestation with premature rupture membranes, #2 hepatitis B surface antigen positive Plan: Patient will be admitted for expectant management. The patient was reviewed with Dr. Hills who requests an obstetrical ultrasound. She is GBS negative from September 03. She has received magnesium sulfate for neuro prophylaxis this and also completed a course of steroids less than 4 weeks ago. Discharge Plan - Discharge Disposition Patient Disposition: 30 Still Patient - Physicians Team ED Provider: Osiel Hayes Primary Care Provider: Primary Care Gabriela Norman
[2017-10-01] MEDS ORDERED: Azithromycin 250 MG Tablet PO ONE (16:22)
[2017-10-01] MEDS: Betamethasone Sod Phos/Acetate Inj 30 MG/5 ML Vial IM SCH (16:42)
[2017-10-01 16:45] LABS: Baso % (Auto) 0.2 % (0.0-2.0); Eos # (Auto) 0.1 th/mm3 (0.0-0.4); Eos % (Auto) 0.7 % (0.0-4.0); Hematocrit 34.4 % (35.0-46.0); Hemoglobin 11.7 gm/dL (11.6-15.3); Lymph # (Auto) 2.1 th/mm3 (1.0-4.8); Lymph % (Auto) 16.1 % (9.0-44.0); Mean Corpuscular HGB Conc 33.9 % (32.0-36.0); Mean Corpuscular Hemoglobin 29.5 pg (27.0-34.0); Mean Corpuscular Volume 86.9 fL (80.0-100.0); Mean Platelet Volume 8.5 fL (7.0-11.0); Mono % (Auto) 7.4 % (0.0-8.0); Neut # (Auto) 9.9 th/mm3 (1.8-7.7); Neut % (Auto) 75.6 % (16.0-70.0); Platelet Count 178 th/mm3 (150-450); Red Blood Count 3.96 mil/mm3 (4.00-5.30); Red Cell Distribution Width 14.6 % (11.6-17.2); White Blood Count 13.1 th/mm3 (4.0-11.0)
[2017-10-01] MEDS: Clindamycin 900 mg/NS Premix 900 MG/50 ML PIGGYBACK IV.SIG SCH (16:45)
[2017-10-01 16:50] LABS: Bacteria,Urine Rare /hpf; Bilirubin,Urine Negative (Negative); Clarity,Urine Hazy (Clear); Color,Urine Yellow (Yellw/Straw); Glucose,Urine (UA) Negative (Negative); Leukocyte Esterase,Urine Small (Negative); Mucus,Urine Few /lpf (Occasional); Nitrite,Urine Negative (Negative); Squamous Epithelial Cell,Urine 16 /hpf (0-5)
[2017-10-01 16:56] LABS: Amphetamine Screen,Urine Neg (Neg); Barbiturate Screen,Urine Neg (Neg); Cannabinoid Screen,Urine Pos (Neg); Cocaine Screen,Urine Neg (Neg)
[2017-10-01 17:01] LABS: Opiate Screen,Urine Neg (Neg)
[2017-10-01] MEDS: GENTAMICIN IV.SIG SCH (17:34)
[2017-10-01] MEDS: SODIUM CHLOR 0.9% IV.SIG SCH (17:34)
--- NOTE | 2017-10-01 18:53 | MH ---
cc: Cecilio Hills MD,Katerina Hayden,Shahida Benavides MD DATE OF ADMISSION: 10/01/2017 ADMITTING DIAGNOSIS: at 32 weeks with premature rupture of membranes. HISTORY OF PRESENT ILLNESS: The patient is a 37-year-old single black female, para 0-2-1-2, currently at 32 weeks' gestation. She has a history of 2 previous deliveries at 31 and 33 weeks, and a previous first trimester miscarriage. She has been hospitalized 3 times this for labor, received magnesium sulfate therapy and steroids about 4 weeks ago. She described a spontaneous rupture of membranes, clear at 2:30 p.m. today, was admitted. Dr. Hayes has confirmed the membrane rupture and she is now admitted for anticipated delivery. PAST SURGICAL HISTORY: None. MEDICATIONS: Vitamins. ALLERGIES: PENICILLIN. TRANSFUSIONS: None. OBSTETRIC HISTORY: Two vaginal deliveries, 1 at 31.1 and 1 at 33; both survived. One spontaneous . SOCIAL HISTORY: She is single. 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 Alcohol, tobacco, and drugs are none. She has medical history of hepatitis B positive. REVIEW OF SYSTEMS: Negative. PHYSICAL EXAMINATION: GENERAL: A gravid, black female in no distress. HEENT: Normal. CHEST: Clear. HEART: Regular rate. BREASTS: Symmetrical. ABDOMEN: Gravid, nontender. EFW is about 600 grams. Cervical exam by Dr. Hayes at 3 cm. EXTREMITIES: Normal. NEUROLOGIC: Intact. PLAN: She will receive steroids, 2 doses if possible, and antibiotic prophylaxis. Although she is GBS negative, but she is PROM and should she have labor, anticipate vaginal delivery. We will get ultrasound to check position, fluid, and size. MD TIM Felix/usman/siria , 05:13 PM , 05:19 PM
[2017-10-01] MEDS: Gentamicin Consult Pharmacy 1 EACH OTHER SCH (19:38)
[2017-10-02] MEDS: Clindamycin 900 mg/NS Premix 900 MG/50 ML PIGGYBACK IV.SIG SCH ×3 (00:21→16:45)
--- NOTE | 2017-10-02 10:06 | P.OBGPN ---
Pt is doing well, good fm, no ctxs, still leaking fluid vital signs stable, afebrile chest CTA bilaterally cv with a regular rate and rhythm abd gravid, fundus nontender perineum without bleeding, slightly damp cvx deferred efm revealed reactive tracing with a baseline 150s, occ rare ctx A/P : IUP at 33 wks with PROM, hx of delivery x 2, no sign labor, no sign infection, well being established 1. continue current care 2. regular diet 3. scd's 4. bed rest 5. BPP in am
[2017-10-02] MEDS: Betamethasone Sod Phos/Acetate Inj 30 MG/5 ML Vial IM SCH (16:44)
[2017-10-02] MEDS: GENTAMICIN IV.SIG SCH (18:37)
[2017-10-02] MEDS: SODIUM CHLOR 0.9% IV.SIG SCH (18:37)
[2017-10-03] MEDS: Clindamycin 900 mg/NS Premix 900 MG/50 ML PIGGYBACK IV.SIG SCH ×3 (00:24→16:23)
[2017-10-03 06:18] LABS: Glomerular Filtration Rate Greater Than 89 mL/min (>89)
[2017-10-03] MEDS: Gentamicin Consult Pharmacy 1 EACH OTHER SCH (07:00)
[2017-10-03] MEDS: Docusate Sodium 100 MG Capsule PO SCH (09:33)
--- NOTE | 2017-10-03 17:10 | P.OBANTE ---
Subjective Antepartum ROS: Reports: Contractions, Other Objective Vital Signs and I&O: Vital Signs 10/02/17 18:38 10/02/17 20:26 10/03/17 00:00 Temperature 98.2 F 98.9 F 99.0 F Pulse Rate 102 H 104 H Respiratory Rate 17 18 18 Blood Pressure 125/61 143/76 H 10/03/17 00:22 10/03/17 07:25 10/03/17 11:29 Temperature 98.2 F 98.7 F Pulse Rate 103 H 93 H 93 H Respiratory Rate 18 18 Blood Pressure 112/50 L 112/53 L 111/57 L 10/03/17 14:31 10/03/17 14:32 10/03/17 16:31 Temperature 98.9 F Pulse Rate 93 H Respiratory Rate 18 19 Blood Pressure 138/66 10/03/17 16:33 Temperature Pulse Rate 83 Respiratory Rate Blood Pressure 133/69 Intake & Output 10/02/17 10/03/17 10/03/17 18:59 06:59 18:59 Intake Total 1100 / 1100 50 / 50 50 / 50 Balance 1100 / 1100 50 / 50 50 / 50 Intake: IV 1100 / 1100 50 / 50 50 / 50 LR 1000 mL Inj 1,000 ML @ 125 1000 / 1000 mls/hr IV.CONT .Q8H [facility] Rx#: [id number] Cleocin 900 mg/NS Premix 900 mg 100 / 100 50 / 50 50 / 50 In 50 ml @ 100 mls/hr IV.SIG Q8H [facility] Rx#:[id number] Lab and Micro Results: Laboratory Results - last 24 hr 10/03/17 05:10 Creatinine 0.82 Estimated GFR Greater than 89 Physical Exam: GENERAL: Well-nourished, well-developed patient. CARDIOVASCULAR: Regular rate and rhythm without murmurs, gallops, or rubs. RESPIRATORY: Breath sounds equal bilaterally. No accessory muscle use. ABDOMEN/GI: Abdomen soft, non-tender. Fundus: [-] GENITOURINARY: External Genitalia: intact and normal in appearance Cervix: [-] Dilatation: [-] Effacement: [-] Station: [-] Presentation: [-] Membranes: [-] Uterine Contractions: [-] FHT's: Category:1 Baseline: [-] Reactive: [-] Variability: [-] Decels: [-] EXTREMITIES: No cyanosis or edema, non-tender, without signs of DVT. Assessment and Plan - Diagnosis (1) 33 weeks gestation of Code(s): Z3A.33 - 33 weeks gestation of Status: Acute (2) Premature rupture of membranes (PROM) affecting first Code(s): O42.90 - Premature rupture of membranes, unspecified as to length of time between rupture and onset of labor, unspecified weeks of gestation Status : Acute - Plan Discharge Planning: deliver at 34 week and continue antibiotics until delivery
[2017-10-03] MEDS ORDERED: Pharmacy Ordered Lab Info OTHER ONE ×2 (17:30→19:00)
[2017-10-03] MEDS: GENTAMICIN IV.SIG SCH (18:20)
[2017-10-03] MEDS: SODIUM CHLOR 0.9% IV.SIG SCH (18:20)
[2017-10-03] MEDS: Betamethasone Sod Phos/Acetate Inj 30 MG/5 ML Vial IM SCH (18:21)
[2017-10-04] MEDS: Clindamycin 900 mg/NS Premix 900 MG/50 ML PIGGYBACK IV.SIG SCH ×3 (00:01→17:33)
[2017-10-04] MEDS: Docusate Sodium 100 MG Capsule PO SCH (09:13)
--- NOTE | 2017-10-04 13:37 | P.OBANTE ---
Subjective Interval History: 37 yo Srom x 72 hours now quiet and has ahd 48 hours IV antibiotic and steroids. Plan to deliver around 34 weeks Objective Vital Signs and I&O: Vital Signs 10/03/17 14:31 10/03/17 14:32 10/03/17 16:31 Temperature 98.9 F Pulse Rate 93 H Respiratory Rate 18 19 Blood Pressure 138/66 10/03/17 16:33 10/03/17 19:33 10/04/17 00:00 Temperature 98.4 F 98.4 F Pulse Rate 83 93 H 89 Respiratory Rate 18 18 Blood Pressure 133/69 115/66 113/59 L 10/04/17 09:11 10/04/17 09:35 10/04/17 13:14 Temperature 98.5 F 99.0 F Pulse Rate 92 H 100 H Respiratory Rate 18 20 Blood Pressure 119/58 L Intake & Output 10/03/17 10/04/17 10/04/17 18:59 06:59 18:59 Intake Total 100 / 100 50 / 50 Balance 100 / 100 50 / 50 Intake: IV 100 / 100 50 / 50 Cleocin 900 mg/NS Premix 900 mg 100 / 100 50 / 50 In 50 ml @ 100 mls/hr IV.SIG Q8H [facility] Rx#:[id number] Lab and Micro Results: Laboratory Results - last 24 hr 10/03/17 10/03/17 10/04/17 18:10 19:23 05:33 Gentamicin Peak 9.9 H Gentamicin Trough Less than 0.2 Random Gentamicin 0.5 Physical Exam: GENERAL: Well-nourished, well-developed patient. CARDIOVASCULAR: Regular rate and rhythm without murmurs, gallops, or rubs. RESPIRATORY: Breath sounds equal bilaterally. No accessory muscle use. ABDOMEN/GI: Abdomen soft, non-tender. Fundus: [-] GENITOURINARY: External Genitalia: intact and normal in appearance Cervix: [-] Dilatation: [-] Effacement: [-] Station: [-] Presentation: [-] Membranes: [-] Uterine Contractions: [-] FHT's: Category: [-] Baseline: [-] Reactive: [-] Variability: [-] Decels: [-] EXTREMITIES: No cyanosis or edema, non-tender, without signs of DVT. Assessment and Plan - Diagnosis (1) 33 weeks gestation of Code(s): Z3A.33 - 33 weeks gestation of Status: Acute (2) Premature rupture of membranes (PROM) affecting first Code(s): O42.90 - Premature rupture of membranes, unspecified as to length of time between rupture and onset of labor, unspecified weeks of gestation Status : Acute - Plan Discharge Planning: deliver at 34 week and continue antibiotics until delivery
[2017-10-04] MEDS: Betamethasone Sod Phos/Acetate Inj 30 MG/5 ML Vial IM SCH (17:34)
[2017-10-04] MEDS ORDERED: GENTAMICIN IV.SIG SCH (18:00)
[2017-10-04] MEDS ORDERED: Gentamicin Inj 300 MG in Sodium Chlor 0.9% Inj 100 ML IV.SIG SCH (18:00)
[2017-10-04] MEDS ORDERED: SODIUM CHLOR 0.9% IV.SIG SCH (18:00)
[2017-10-04 19:09] LABS: Baso # (Auto) 0.1 th/mm3 (0.0-0.2); Baso % (Auto) 0.5 % (0.0-2.0); Eos # (Auto) 0.1 th/mm3 (0.0-0.4); Eos % (Auto) 0.6 % (0.0-4.0); Hematocrit 32.9 % (35.0-46.0); Hemoglobin 11.3 gm/dL (11.6-15.3); Lymph # (Auto) 2.3 th/mm3 (1.0-4.8); Mean Corpuscular HGB Conc 34.2 % (32.0-36.0); Mean Corpuscular Hemoglobin 29.8 pg (27.0-34.0); Mean Platelet Volume 8.1 fL (7.0-11.0); Mono # (Auto) 1.7 th/mm3 (0.0-0.9); Mono % (Auto) 10.3 % (0.0-8.0); Neut # (Auto) 12.1 th/mm3 (1.8-7.7); Neut % (Auto) 74.6 % (16.0-70.0); Platelet Count 169 th/mm3 (150-450); Red Blood Count 3.78 mil/mm3 (4.00-5.30); Red Cell Distribution Width 14.8 % (11.6-17.2); White Blood Count 16.2 th/mm3 (4.0-11.0)
[2017-10-04 20:05] LABS: Eosinophils 1 % (0-4); Lymphocytes 34 % (9-44); Metamyelocytes 6 % (0-1); Monocytes 15 % (0-8); Myelocytes 7 % (0-0); Tallied Nucleated RBC 1 (0-0)
[2017-10-04 20:07] LABS: Platelet Estimate Normal (Normal); Platelet Morphology Normal (Normal)
[2017-10-05] MEDS ORDERED: Pharmacy Ordered Lab Info OTHER ONE (04:00)
[2017-10-05] MEDS: Docusate Sodium 100 MG Capsule PO SCH (08:31)
--- NOTE | 2017-10-05 09:11 | P.OBANTE ---
Subjective Interval History: 33 3/7 weeks doing well. She has no contractions or sign of infection. Delivery around 34 weeks if no problems prior Objective Vital Signs and I&O: Vital Signs 10/04/17 09:11 10/04/17 09:35 10/04/17 13:14 Temperature 98.5 F 99.0 F Pulse Rate 92 H 100 H Respiratory Rate 18 20 Blood Pressure 119/58 L 10/04/17 17:35 10/04/17 20:33 10/04/17 20:38 Temperature 97.8 F 98.0 F Pulse Rate 93 H Respiratory Rate 18 18 Blood Pressure 117/61 10/04/17 20:45 10/04/17 22:09 10/04/17 22:10 Temperature 98.4 F Pulse Rate 96 H 91 H Respiratory Rate 18 Blood Pressure 126/57 L 10/05/17 02:15 10/05/17 07:27 Temperature 97.8 F 98.9 F Pulse Rate 86 92 H Respiratory Rate 18 18 Blood Pressure 140/75 116/67 Intake & Output 10/04/17 10/05/17 10/05/17 18:59 06:59 18:59 Intake Total 50 / 50 Balance 50 / 50 Intake: IV 50 / 50 Cleocin 900 mg/NS Premix 900 mg 50 / 50 In 50 ml @ 100 mls/hr IV.SIG Q8H [facility] Rx#:[id number] Lab and Micro Results: Laboratory Results - last 24 hr 10/04/17 18:40 WBC 16.2 H RBC 3.78 L Hgb 11.3 L Hct 32.9 L MCV 87.0 MCH 29.8 MCHC 34.2 RDW 14.8 Plt Count 169 MPV 8.1 Prelim Diff (Auto) Slide review pending Neut % (Auto) 74.6 H Lymph % (Auto) 14.0 Winn % (Auto) 10.3 H Eos % (Auto) 0.6 Baso % (Auto) 0.5 Neut # (Auto) 12.1 H Lymph # (Auto) 2.3 Winn # (Auto) 1.7 H Eos # (Auto) 0.1 Baso # (Auto) 0.1 WBC Differential Manual diff final Seg Neuts % (Manual) 25 Band Neuts % (Manual) 12 H Lymphocytes % (Manual) 34 Monocytes % (Manual) 15 H Eosinophils % (Manual) 1 Metamyelocytes % (Man) 6 H Myelocytes % (Man) 7 H Abs Neuts (Manual) 8.1 H Nucleated RBCs/100 WBC 1 H Differential Comment . Platelet Estimate Normal Platelet Morphology Normal Physical Exam: GENERAL: Well-nourished, well-developed patient. CARDIOVASCULAR: Regular rate and rhythm without murmurs, gallops, or rubs. RESPIRATORY: Breath sounds equal bilaterally. No accessory muscle use. ABDOMEN/GI: Abdomen soft, non-tender. Fundus: [-] GENITOURINARY: External Genitalia: intact and normal in appearance Cervix: [-] Dilatation:deferred Effacement: [-] Station: [-] Presentation: [-] Membranes: [-] Uterine Contractions: [-] FHT's: Category: 1 Baseline: [-] Reactive: [-] Variability: [-] Decels: [-] EXTREMITIES: No cyanosis or edema, non-tender, without signs of DVT. Assessment and Plan - Diagnosis (1) 33 weeks gestation of Code(s): Z3A.33 - 33 weeks gestation of Status: Acute (2) Premature rupture of membranes (PROM) affecting first Code(s): O42.90 - Premature rupture of membranes, unspecified as to length of time between rupture and onset of labor, unspecified weeks of gestation Status : Acute - Plan Discharge Planning: deliver at 34 week and continue antibiotics until delivery
[2017-10-05] MEDS ORDERED: fentaNYL Citrate Inj 250 MCG/5 ML Ampul ONE (17:44)
[2017-10-05] MEDS: Betamethasone Sod Phos/Acetate Inj 30 MG/5 ML Vial IM SCH (18:00)
--- NOTE | 2017-10-06 07:22 | P.OBANTE ---
Subjective Interval History: doing well. no contractions no sign of infection Objective Vital Signs and I&O: Vital Signs 10/05/17 07:27 10/05/17 08:35 10/05/17 11:42 Temperature 98.9 F 98.5 F Pulse Rate 92 H 104 H 105 H Respiratory Rate 18 18 Blood Pressure 116/67 139/80 10/05/17 14:55 10/05/17 16:00 10/05/17 19:45 Temperature 98.8 F Pulse Rate 89 95 H Respiratory Rate 16 16 Blood Pressure 139/72 10/05/17 19:46 10/05/17 22:00 10/05/17 22:47 Temperature 98.9 F Pulse Rate 93 H Respiratory Rate 16 16 Blood Pressure 131/66 10/05/17 22:59 10/06/17 02:37 Temperature 98.7 F Pulse Rate 94 H Respiratory Rate 16 Blood Pressure 136/67 Physical Exam: GENERAL: Well-nourished, well-developed patient. CARDIOVASCULAR: Regular rate and rhythm without murmurs, gallops, or rubs. RESPIRATORY: Breath sounds equal bilaterally. No accessory muscle use. ABDOMEN/GI: Abdomen soft, non-tender. Fundus: [-] GENITOURINARY: External Genitalia: intact and normal in appearance Cervix: [-] Dilatation: closed Effacement: [-] Station: [-] Presentation: [-] Membranes: [-] Uterine Contractions: [-] FHT's: Category:1 Baseline: [-] Reactive: [-] Variability: [-] Decels: [-] EXTREMITIES: No cyanosis or edema, non-tender, without signs of DVT. Assessment and Plan - Diagnosis (1) 33 weeks gestation of Code(s): Z3A.33 - 33 weeks gestation of Status: Acute (2) Premature rupture of membranes (PROM) affecting first Code(s): O42.90 - Premature rupture of membranes, unspecified as to length of time between rupture and onset of labor, unspecified weeks of gestation Status : Acute - Plan Discharge Planning: deliver at 34 week and continue antibiotics until delivery delivery on monday
[2017-10-06] MEDS: Docusate Sodium 100 MG Capsule PO SCH (09:41)
[2017-10-06] MEDS: Betamethasone Sod Phos/Acetate Inj 30 MG/5 ML Vial IM SCH (18:35)
[2017-10-07] MEDS ORDERED: Oxytocin 30 Units/500ml Premix 30 UNITS/500 ML BAG ONE (08:50)
[2017-10-07] MEDS ORDERED: Sodium Chlor 0.9% Inj 500 ML IV.SIG PRN (08:51)
[2017-10-07] MEDS ORDERED: fentaNYL Citrate Inj 100 MCG/2 ML Ampul IV.PUSH PRN ×2 (08:51)
[2017-10-07] MEDS ORDERED: Sod Chloride 0.9% Inj 1,000 ML IV.CONT PRN (08:51)
[2017-10-07] MEDS ORDERED: Oxytocin 30 Units/500ml Premix 30 UNITS/500 ML BAG IV.SIG ONE (08:51)
[2017-10-07 08:52] LABS: Baso # (Auto) 0.1 th/mm3 (0.0-0.2); Baso % (Auto) 0.7 % (0.0-2.0); Eos # (Auto) 0.1 th/mm3 (0.0-0.4); Eos % (Auto) 0.4 % (0.0-4.0); Hematocrit 36.7 % (35.0-46.0); Hemoglobin 12.5 gm/dL (11.6-15.3); Lymph # (Auto) 2.1 th/mm3 (1.0-4.8); Lymph % (Auto) 9.7 % (9.0-44.0); Mean Corpuscular Hemoglobin 29.1 pg (27.0-34.0); Mean Corpuscular Volume 85.7 fL (80.0-100.0); Mean Platelet Volume 8.2 fL (7.0-11.0); Mono # (Auto) 1.7 th/mm3 (0.0-0.9); Mono % (Auto) 7.6 % (0.0-8.0); Neut # (Auto) 17.9 th/mm3 (1.8-7.7); Neut % (Auto) 81.6 % (16.0-70.0); Platelet Count 194 th/mm3 (150-450); Red Blood Count 4.28 mil/mm3 (4.00-5.30); Red Cell Distribution Width 14.9 % (11.6-17.2); White Blood Count 21.9 th/mm3 (4.0-11.0)
[2017-10-07] MEDS ORDERED: Citric Acid/Sodium Citrate Liq 30 ML UDC PO SCH (09:00)
[2017-10-07] MEDS: Docusate Sodium 100 MG Capsule PO SCH (09:11)
[2017-10-07] MEDS ORDERED: Naloxone Inj 0.4 MG/ML Vial IV.PUSH PRN (10:16)
[2017-10-07] MEDS ORDERED: Benzocaine 20% Top Spray 60 ML Can TOPICAL PRN (10:16)
[2017-10-07] MEDS ORDERED: Acetaminophen 325 MG Tablet PO PRN (10:16)
[2017-10-07] MEDS ORDERED: Witch Hazel 50%/Glyderin 12.5% 40 Pad Jar RECTAL PRN (10:16)
[2017-10-07] MEDS ORDERED: Oxytocin 30 Units/500ml Premix 30 UNITS/500 ML BAG IV.CONT PRN (10:16)
[2017-10-07] MEDS ORDERED: Bisacodyl 10 MG Supp RECTAL PRN (10:16)
--- NOTE | 2017-10-07 10:16 | P.OBDELI ---
Weeks Gestation: 33 Patient Started Active Labor: Yes Anesthesia: None Episiotomy: none Vaginal Delivery: Normal Presentation: Occiput anterior Nuchal Cord: x1 Delayed Cord Clamping (45 sec): Yes Placenta: Spontaneous delivery, Intact, 3 vessel cord Laceration: None Estimated blood loss (mL): 200 : Female
[2017-10-07] MEDS ORDERED: Measles/Mumps/Rubella Vaccine Inj 0.5 ML Vial SQ ONE (16:00)
[2017-10-07] MEDS ORDERED: Diphtheria/Tetanus/Pertussis Vaccine Inj 0.5 ML Syringe IM ONE (16:00)
[2017-10-07 16:05] LABS: Bilirubin,Urine Negative (Negative); Clarity,Urine Cloudy (Clear); Color,Urine Red (Yellw/Straw); Glucose,Urine (UA) 50 mg/dL (Negative); Leukocyte Esterase,Urine Trace (Negative); Nitrite,Urine Negative (Negative); Specific Gravity,Urine 1.014 (1.002-1.035)
[2017-10-07] MEDS ORDERED: Zolpidem Tartrate 5 MG Tablet PO PRN (21:00)
[2017-10-07 21:35] LABS: Amphetamine Urine With Conf Neg (Neg); Benzodiazepine Urine With Conf Neg (Neg)
[2017-10-07] MEDS: Senna/Docusate Sodium 8.6/50 MG Tablet PO SCH (21:50)
--- NOTE | 2017-10-08 07:35 | P.PNOB ---
Subjective Post day: 1 Objective Vital Signs/I&O: Vital Signs 10/07/17 07:54 10/07/17 08:00 10/07/17 09:55 Temperature 99.3 F Pulse Rate 114 H 96 H Respiratory Rate 20 Blood Pressure 146/93 H 141/94 H 10/07/17 10:05 10/07/17 10:25 10/07/17 10:30 Temperature Pulse Rate 111 H 114 H Respiratory Rate 20 Blood Pressure 155/88 H 10/07/17 11:00 10/07/17 11:15 10/07/17 12:00 Temperature 98.7 F 99.0 F Pulse Rate 97 H 86 Respiratory Rate 16 Blood Pressure 155/90 H 141/87 H 10/07/17 20:00 Temperature 97.8 F Pulse Rate 81 Respiratory Rate 18 Blood Pressure 114/71 Intake & Output 10/07/17 10/08/17 10/08/17 18:59 06:59 18:59 Intake Total 1000 / 1000 Balance 1000 / 1000 Intake: IV 1000 / 1000 LR 1000 mL Inj 1,000 ML @ 125 1000 / 1000 mls/hr IV.CONT .Q8H [facility] Rx#: [id number] Result Diagrams: 10/07/17 08:30 10/03/17 05:10 Objective Remarks: GENERAL: Well-nourished, well-developed patient. CARDIOVASCULAR: Regular rate and rhythm without murmurs, gallops, or rubs. RESPIRATORY: Breath sounds equal bilaterally. No accessory muscle use. ABDOMEN/GI: Abdomen soft, non-tender. Fundus: Firm, non-tender at umbilicus. GENITOURINARY: Light to moderate bleeding. EXTREMITIES: No cyanosis or edema, non-tender, without signs of DVT. Medications and IVs: Active Medications Acetaminophen (Tylenol) 650 mg PO Q4H PRN PRN Reason: PAIN SCALE 1 TO 2 Al Hydroxide/Mg Hydroxide (Milk Of Magnesia Liq) 30 ml PO Q12H PRN PRN Reason: Mild Constipation Benzocaine (Americaine 20% Top [place]) 1 spray TOPICAL Q4H PRN PRN Reason: For Perineum Discomfort Last Admin: 10/07/17 11:13 Dose: 1 spray Bisacodyl (Dulcolax Supp) 10 mg RECTAL DAILY PRN PRN Reason: SEVERE CONSITIPATION Calcium Gluconate (Calcium Gluconate Inj) 1 gm IV.PUSH ONCE PRN PRN Reason: Magnesium toxicity Citric Acid/Sodium Citrate (Sodium Citrate/Citric Acid Liq) 30 ml PO [employer]IDENTIAL COORDINATOR [facility] Stop: 10/11/17 08:59 Docusate Sodium (Colace) 100 mg PO DAILY [facility] Last Admin: 10/07/17 09:11 Dose: Not Given Fentanyl Citrate (Fentanyl Inj) 50 mcg IV.PUSH Q1H PRN PRN Reason: Pain Scale 3 - 5 Fentanyl Citrate (Fentanyl Inj) 100 mcg IV.PUSH Q1H PRN PRN Reason: PAIN SCALE 6 TO 10 Sodium Chloride (Ns Inj) 500 mls @ 1,000 mls/hr IV.SIG UNSCH PRN PRN Reason: SEE LABEL COMMENTS Sodium Chloride (Ns Inj) 1,000 mls @ 100 mls/hr IV.CONT .Q10H PRN PRN Reason: SEE LABEL COMMENTS Oxytocin (Pitocin 30 Units/Ns 500 Ml Premix) 30 units in 500 mls @ 100 mls/hr IV.CONT UNSCH PRN PRN Reason: Heavy bleeding Last Admin: 10/07/17 11:37 Dose: 100 mls/hr Ibuprofen (Motrin) 800 mg PO Q8H PRN PRN Reason: For Cramping Last Admin: 10/07/17 21:50 Dose: 800 mg Lactulose (Lactulose Liq) 30 ml PO DAILY PRN PRN Reason: SEVERE CONSITIPATION Lidocaine HCl (Xylocaine 1% Inj) 0.1 ml I-DERMAL PRN PRN PRN Reason: For IV start Stop: 10/10/17 08:50 Lidocaine HCl (Xylocaine 1% Inj) 10 ml INFILTRATN PRN PRN PRN Reason: For episiotomy repair Stop: 10/09/17 08:50 Mineral Oil (Muri-Lube Oil) 10 ml TOPICAL PRN PRN PRN Reason: PRN perineal massage Naloxone HCl (Narcan Inj) 0.1 mg IV.PUSH Q2M PRN PRN Reason: for opiate reversal Naloxone HCl (Narcan Inj) 0.1 mg IV.PUSH Q2M PRN PRN Reason: for opiate reversal Ondansetron HCl (Zofran Odt) 4 mg PO Q6H PRN PRN Reason: NAUSEA OR VOMITING Ondansetron HCl (Zofran Odt) 4 mg PO Q6H PRN PRN Reason: NAUSEA OR VOMITING Oxycodone/Acetaminophen (Percocet 5/325 Mg) 1 tab PO Q4H PRN PRN Reason: PAIN SCALE 3 TO 5 Oxycodone/Acetaminophen (Percocet 5/325 Mg) 2 tab PO Q4H PRN PRN Reason: PAIN SCALE 6 TO 10 Last Admin: 10/07/17 21:50 Dose: 2 tab Vit/Calcium/Iron/Folic Ac (Stuartnatal Plus 3) 1 tab PO DAILY [facility] Senna/Docusate Sodium (Josi-Colace) 1 tab PO BID [facility] Last Admin: 10/07/17 21:50 Dose: 1 tab Sennosides (Senokot) 17.2 mg PO Q12H PRN PRN Reason: Moderate Constipation Sodium Chloride (Ns Flush) 2 ml IV.FLUSH BID [facility] Last Admin: 10/07/17 21:52 Dose: 2 ml Sodium Chloride (Ns Flush) 2 ml IV.FLUSH PRN PRN PRN Reason: FLUSH AFTER USING IV ACCESS Witch Irene/Glycerin (Tucks Pads) 1 applicatio RECTAL QID PRN PRN Reason: HEMORRHOIDS Last Admin: 10/07/17 11:13 Dose: 1 applicatio Zolpidem Tartrate (Ambien) 5 mg PO HS PRN PRN Reason: SLEEP Assessment and Plan - Diagnosis (1) 33 weeks gestation of Code(s): Z3A.33 - 33 weeks gestation of Status: Acute (2) Premature rupture of membranes (PROM) affecting first Code(s): O42.90 - Premature rupture of membranes, unspecified as to length of time between rupture and onset of labor, unspecified weeks of gestation Status : Acute - Plan Discharge Planning: PPD # 1 s/p at 33wks 5 dys, pt doing well, no pain, minimal bleeding...routine care
[2017-10-08] MEDS ORDERED: PNV PO SCH (09:00)
[2017-10-08] MEDS: Docusate Sodium 100 MG Capsule PO SCH (12:27)
[2017-10-08] MEDS: Prenatal Vit/Ca/Iron/Folic Acid Tablet PO SCH (12:28)
[2017-10-08] MEDS: Senna/Docusate Sodium 8.6/50 MG Tablet PO SCH ×2 (12:28→21:36)
[2017-10-09] MEDS ORDERED: Diphtheria/Tetanus/Pertussis Vaccine Inj 0.5 ML Syringe IM ONE (00:30)
[2017-10-09 09:09] VITALS: BP 122/68; PULSE 78; RESP 20; TEMP 98.6
[2017-10-09] MEDS: Docusate Sodium 100 MG Capsule PO SCH (10:49)
[2017-10-09] MEDS: Senna/Docusate Sodium 8.6/50 MG Tablet PO SCH (10:49)
[2017-10-09] MEDS: Prenatal Vit/Ca/Iron/Folic Acid Tablet PO SCH (10:51)
== END 2017-10-09 12:00 | disposition home or self-care (01) ==
LOC: HOBED 14:52 → H2E 15:48 → H1EA 10-07 11:51
PROVIDERS: ADMIT Obstetrics & Gynecology; ATTEND Obstetrics & Gynecology